=== PATIENT | female | born 1940 | race Caucasian/White ===

== ENCOUNTER → 2016-06-24 | Outpatient (CLI) | payer MEDICARE ==
--- NOTE | 2016-06-24 17:02 | US ---
EXAMINATION TYPE: US carotid duplex BILAT DATE OF EXAM: 06/24/2016 4:22 PM COMPARISON: NONE CLINICAL HISTORY: R09.89 Carotid Bruit. Pt states Physician heard a bruit EXAM MEASUREMENTS: RIGHT: Peak Systolic Velocity (PSV) cm/sec ----- Right CCA: 72.1 ----- Right ICA: 112.2 ----- Right ECA: 130.3 ICA/CCA ratio: 1.6 RIGHT: End Diastole cm/sec ----- Right CCA: 21.5 ----- Right ICA: 43.5 ----- Right ECA: 18.8 LEFT: Peak Systolic Velocity (PSV) cm/sec ----- Left CCA: 80.8 ----- Left ICA: 193.0 ----- Left ECA: 120.6 ICA/CCA ratio: 2.4 LEFT: End Diastole cm/sec ----- Left CCA: 21.5 ----- Left ICA: 50.5 ----- Left ECA: 25.2 VERTEBRALS (direction of flow): Right Vertebral: Antegrade Left Vertebral: Antegrade TECHNOLOGIST IMPRESSION: Heterogeneous plaque bilaterally with elevated velocities Right ECA and LEF T Bulb and ICA Grayscale, color Doppler, spectral Doppler imaging performed of the carotid arteries. Atheromatous pl aque present at the carotid bulbs. Waveform analysis does not show significant stenosis within the pr oximal internal carotid artery at the right. Hemodynamic significant stenosis is present within the p roximal internal carotid artery on the left. IMPRESSION: Hemodynamic significant stenosis of the proximal internal carotid artery on the left cor responding to approximately 50-69% diameter reduction. No hemodynamic significant stenosis of the pro ximal internal carotid artery on the right by Doppler criteria, an indirect measurement of carotid st enosis
== END | disposition home or self-care (01) ==
LOC: RADUSWWP 16:00
PROVIDERS: ATTEND Family Medicine
DX: I65.22 Occlusion and stenosis of left carotid artery (principal)
CPT/HCPCS: 93880

== ENCOUNTER → 2016-07-18 | Outpatient (CLI) | payer MEDICARE ==
[2016-07-18 12:00] LABS: EKG EKG PERFORMED
[2016-07-18 12:40] LABS: Basophils # (A) 0.1 k/uL (0-0.2); Basophils % (A) 1 %; CH 30.2; CHCM 31.4; Eosinophils % (A) 0 %; HCT 39.4 % (34.0-46.0); HDW 2.55; HGB 12.3 gm/dL (11.4-16.0); Luc # (Auto) 0.27; Luc % (Auto) 4; Lymphocytes # (A) 1.8 k/uL (1.0-4.8); Lymphocytes % (A) 28 %; MCH 30.1 pg (25.0-35.0); MCHC 31.1 g/dL (31.0-37.0); MCV 96.7 fL (80.0-100.0); Mean Platelet Volume 8.1; Monocytes # (A) 0.3 k/uL (0-1.0); Monocytes % (A) 5 %; Neutrophils # (A) 4.1 k/uL (1.3-7.7); Neutrophils % (A) 63 %; RBC 4.07 m/uL (3.80-5.40); RDW 14.1 % (11.5-15.5); WBC 6.5 k/uL (3.8-10.6); WBC (Perox) 6.74
[2016-07-18 12:41] LABS: Appearance,Urine Clear (Clear); Bilirubin,Urine Negative (Negative); Glucose,Urine (UA) Negative (Negative); Ketones,Urine Negative (Negative); Leukocyte Esterase,Urine Negative (Negative); Nitrite,Urine Negative (Negative); PH, Urine 6.5 (5.0-8.0); Protein,Urine Negative (Negative); Specific Gravity,Urine 1.011 (1.001-1.035); UA Billing (MACRO vs. MICRO) CHEM; Urobilinogen,Urine <2.0 mg/dL (<2.0)
[2016-07-18 12:48] LABS: Partial Thromboplastin Time 26.2 sec (22.0-30.0)
[2016-07-18 12:56] LABS: ALT 24 U/L (9-52); AST 21 U/L (14-36); Alkaline Phosphatase 80 U/L (38-126); Anion Gap 12 mmol/L; Blood Urea Nitrogen 28 mg/dL (7-17); Carbon Dioxide 24 mmol/L (22-30); Chloride 106 mmol/L (98-107); Glucose 103 mg/dL (74-99); Non-African American GFR(MDRD) 36 (>60 ml/min/1.73 sqM); Potassium 5.3 mmol/L (3.5-5.1); Sodium 142 mmol/L (137-145); Total Bilirubin 0.9 mg/dL (0.2-1.3); Total Protein 7.9 g/dL (6.3-8.2)
== END ==
LOC: LABWHC1 11:21
PROVIDERS: ATTEND Orthopaedic Surgery
DX: Z01.810 Encounter for preprocedural cardiovascular examination (principal); Z01.812 Encounter for preprocedural laboratory examination
CPT/HCPCS: 36415; 80053; 81003; 85025; 85610; 85730; 87070; 93005

== ENCOUNTER 2016-07-29 08:30 | Inpatient (IN) | payer MEDICARE ==
[2016-07-19 11:19] VITALS: BMI 36.7
[~2016-07-29 08:30] MED LIST: DEXAMETHASONE SOD PHOSPHATE 10 MG/ML 1 ML VIAL IV ONE; HYDROmorphone 1 MG/ML 1 ML SYRINGE IVP PRN; LACTATED RINGERS 1,000 ML IV SCH; MELOXICAM 7.5 MG TAB PO ONE; MIDAZOLAM 2 MG/2 ML VIAL IV PRN; ONDANSETRON 4 MG/2 ML VIAL IVP ONE; TRANEXAMIC ACID 1,000 MG in SODIUM CHLORIDE 0.9% 100 ML IVPB ONE; ceFAZolin 2 GM in SODIUM CHLORIDE 0.9% 100 ML IVPB ONE
[2016-07-29] MEDS ORDERED: ROPIVACAINE 246.25 MG, EPINEPHrine 0.5 MG, KETOROLAC 30 MG, cloNIDine HCL/PF 80 MCG, WA... MISCELLANE ONE ×5 (10:56)
[2016-07-29] MEDS ORDERED: LIDOCAINE 1% 20 ML VIAL (10MG/ML) FOR IV START INTRADERMA ONE (12:41)
[2016-07-29 12:46] LABS: Glucose,Whole Blood 104 mg/dL (75-99)
[2016-07-29] MEDS ORDERED: MIDAZOLAM 2 MG/2 ML VIAL IVP ONE (13:10)
--- NOTE | 2016-07-29 13:22 | P.ONQ ---
Anesthesiology Proc Note - PNB - Peripheral Nerve Block Performed Left Adductor Canal Time Out Performed: Yes Procedure Start Time: 12:50 Indication: Acute Post-Operative Pain, Analgesia Sedation Type: Sedate with meaningful contact maintained Preparation: Sterile Prep Position: Supine Catheter: Indwelling Needle Types: On-Q Needle Size: 50mm (2") Needle Gauge: 18 Injectate: 0.5% Ropivacaine (see comment for volume) Blood Aspirated: No Pain Paresthesia on Injection Noted: No Resistance on Injection: Normal Events: Uneventful and Well Tolerated
[2016-07-29] MEDS ORDERED: MIDAZOLAM 2 MG/2 ML VIAL ONE (13:45)
[2016-07-29] MEDS ORDERED: ePHEDrine 50 MG/ML 1 ML AMP ONE (13:45)
[2016-07-29] MEDS ORDERED: PROPOFOL 10 MG/ML 20 ML VIAL IV ONE (13:45)
[2016-07-29] MEDS ORDERED: SODIUM CHLORIDE 0.9% 100 ML BAG ONE (13:45)
[2016-07-29] MEDS ORDERED: fentaNYL (PF) 50 MCG/ML 2 ML AMP ONE (13:45)
[2016-07-29] MEDS ORDERED: TRANEXAMIC ACID 1,000 MG/10 ML VIAL ONE (13:45)
[2016-07-29] MEDS ORDERED: ROPIVACAINE 5 MG/ML 30 ML VIAL ONE (13:45)
[2016-07-29] MEDS ORDERED: PHENYLEPHRINE-0.9% NACL SYG 1 MG/10 ML SYRINGE ONE (13:45)
[2016-07-29] MEDS ORDERED: ONDANSETRON 4 MG/2 ML VIAL ONE (13:45)
[2016-07-29] MEDS ORDERED: ceFAZolin 3,000 MG in SODIUM CHLORIDE 0.9% IRRIGATIO 3,000 ML IRRIGATION ONE (14:24)
[2016-07-29] MEDS ORDERED: LACTATED RINGERS 1,000 ML IV ONE (14:38)
--- NOTE | 2016-07-29 15:18 | P.OP ---
Date of Procedure: 07/29/16 Preoperative Diagnosis: Severe osteoarthritis of the left knee Postoperative Diagnosis: Severe osteoarthritis left knee Procedure(s) Performed: Left total knee arthroplasty Implants: Guerrero [employer] Nephew Oxinium femoral component size 5 narrow, left Guerrero [employer] Nephew Katiana II left nonporous tibial baseplate size 4 Guerrero [employer] Nephew size 9 mm Legion XLPE dished articular insert, size 3-4 Guerrero [employer] Katiana II resurfacing patellar component, 32 mm All components were cemented using Malinda bone cement.. The articulation is ceramic on polyethylene. Anesthesia: spinal Surgeon: Shoaib Painter Manager Wellness #1: Jason West Estimated Blood Loss (ml): 50 Pathology: other (Bone and cartilage) Condition: stable Disposition: PACU Indications for Procedure: After failure of conservative treatment we discussed the surgical and nonsurgical treatment options at length. Patient wishes to proceed with a total knee arthroplasty. Complications specific to this procedure were discussed at length, including but not limited to infection, bleeding, stiffness , and nerve injury. Patient is aware of all these complications and informed consent was obtained Operative Findings: The operative findings are consistent with severe osteoarthritis of the left knee Description of Procedure: Patient was seen in the preoperative area consent was reviewed and operative site was marked with a skin marker. An adductor canal pain catheter was placed by anesthesia in the preoperative area. Patient was then brought to the operating room and given preoperative antibiotics intravenously. A spinal anesthetic was administered by the anesthesia department. A Andre catheter was then placed by the nursing staff. A tourniquet was placed on the upper thigh and the lower extremity was prepped and draped in usual sterile fashion. A gram of transexamic acid was given. A universal timeout was then performed which confirmed the patient's name, surgical site, ALLERGIES, and consent. The lower extremity was then exsanguinated and tourniquet was inflated to 250 mmHg. A standard and anterior midline approach to the knee was performed. The skin and subcutaneous tissue was dissected down to the patellar tendon. A medial parapatellar arthrotomy was then performed. The knee was then extended, the patellar was everted, and the knee was again flexed. Anterior horns of both menisci were excised, and a release was performed to the posterior medial aspect of the knee. On gross visual inspection, there was complete loss of articular cartilage in the medial and patellofemoral joint spaces. There was also significant cartilage damage in the lateral compartment. There were multiple periarticular osteophytes which were then removed with a Ronguer. The femoral canal was then opened with the appropriate drill, and the intramedullary femoral cutting guide was then placed and set for 4 of valgus. The distal femoral cutting block was then pinned in place, and the distal femur was then cut. The cutting block was then removed and the cut was checked for flatness. Next, the sizing guide was then placed and set for 3 external rotation based off of the epicondylar axis and Whitesides line. After the femur was sized, the appropriate 4-in-1 cutting block was then pinned in place. The anterior condyles were cut without notching. The posterior and chamfer cuts were performed while protecting the collateral ligaments. The cutting block was then removed, and the femoral canal was plugged with autologous bone. Attention was then directed to the tibia. The remaining ACL was removed with a Ronguer, and the tibia was then gently subluxed forward with a large bent knee retractor. Any remaining menisci was excised. The posterior lateral corner was cauterized in order to cauterize the lateral geniculate artery. The extra medullary tibial cutting guide was then placed, set for the appropriate rotation , slope, and depth of resection. The proximal tibia cutting guide was then pinned in place. Proximal tibia was then cut and sized. Next trials were then placed with the appropriate-sized insert. The knee was able to fully extend and flex to 130 and was stable throughout all range of motion. The knee was then extended, patella everted. Patella was then measured, and then using an osteotomy guide, the patella was cut at the appropriate level. The patella was then measured and drilled and the patella trial was then placed. The knee was then taken through range of motion with the patella trial and the patella tracked normally. The knee was then extended patella trial was then removed and the patella was everted. Knee was then flexed and lug holes were drilled through the femoral trial and the femoral trial was then removed. The tibial was then exposed, and the tibial broach guide was then pinned in place after it was set for the appropriate rotation to allow for the most coverage without overhang. The tibia was then reamed and broached. The cut surfaces of bone were then irrigated with pulsatile lavage. The posterior structures were injected with the ropivacaine solution. The knee was also irrigated with Irrisept solution. The components were then opened, the cement was mixed, and the components were then cemented in place. The cement was allowed to harden with the knee in full extension. While the cement was hardening, the remaining soft tissues were then injected with a ropivacaine solution, which consisted of 246.25 mg of ropivacaine, 0.5 mg of epinephrine, 30 mg of Toradol, 80 g of clonidine, and 48.45 mL of sterile water, for a total of 100 mL of fluid injected. After the cemented hardened. The tourniquet was released, and hemostasis was obtained. A second gram of transexamic acid was given. The knee was again irrigated. The knee was again taken through range of motion and found to be stable throughout all range of motion of 0-130 , and the patella tracked normally. The fascia was then closed with #2 strata fix suture. The subcutaneous tissue was closed with 3-0 Vicryl and 3-0 strata fix. Dermabond tape was used for the skin and placed with the knee in flexion. The patient was placed in a sterile dressing. Patient was then transferred to recovery room in stable condition. The legal assistant BENNIE Duke was required due the complexity surgery and the need for a skilled surgical services asst. She assisted in positioning, draping, retraction, and closure of the wound.
[2016-07-29] MEDS ORDERED: ROPIVACAINE 1,100 MG, SODIUM CHLORIDE 0.9% 330 ML MISCELLANE PRN ×2 (15:30)
[2016-07-29] MEDS ORDERED: HYDROmorphone 1 MG/ML 1 ML SYRINGE IVP PRN ×3 (15:59)
[2016-07-29] MEDS ORDERED: ONDANSETRON 4 MG/2 ML VIAL IVP PRN (15:59)
[2016-07-29] MEDS ORDERED: BISACODYL 10 MG SUPP RECTAL PRN (15:59)
[2016-07-29] MEDS ORDERED: MAGNESIUM HYDROXIDE 2,400 MG/10 ML CUP PO PRN (15:59)
[2016-07-29] MEDS ORDERED: hydrOXYzine PAMOATE 25 MG CAP PO PRN (15:59)
[2016-07-29] MEDS ORDERED: NALOXONE 0.4 MG/ML 1 ML VIAL IV PRN (15:59)
[2016-07-29] MEDS ORDERED: BUPIVACAIN-EPI 0.25%-1:200,000 30 ML VIAL INTRAARTIC ONE ×2 (16:28→17:20)
--- NOTE | 2016-07-29 16:30 | XR ---
EXAMINATION TYPE: XR knee limited LT DATE OF EXAM: 07/29/2016 4:23 PM CLINICAL HISTORY: Left knee pain and arthritis status post total knee replacement. TECHNIQUE: Portable AP and crosstable lateral views of the left knee are obtained immediately postop eratively. COMPARISON: None FINDINGS: Metallic hardware from total left knee arthroplasty is seen and appears satisfactory in al ignment and position. There is evidence of recent surgery with diffuse subcutaneous gas and swelling noted. IMPRESSION: METALLIC HARDWARE FROM TOTAL LEFT KNEE ARTHROPLASTY IS SATISFACTORY IN ALIGNMENT.
[2016-07-29] MEDS: SODIUM CHLORIDE 0.9% 1,000 ML IV SCH (17:56)
[2016-07-29 20:21] LABS: Glucose,Whole Blood 147 mg/dL (75-99)
[2016-07-29] MEDS: ceFAZolin 2 GM in SODIUM CHLORIDE 0.9% 100 ML IVPB SCH (21:49)
[2016-07-29] MEDS: BRIMONIDINE TARTRATE 0.2% DROPS 5 ML BTL BOTH EYES SCH (21:56)
[2016-07-29] MEDS: DORZOLAMIDE HCL 2% DROPS 10 ML BTL BOTH EYES SCH (21:56)
[2016-07-29] MEDS: SENNOSIDES-DOCUSATE SODIUM 1 EACH TAB PO SCH (22:00)
[2016-07-29] MEDS: ASPIRIN 325 MG TAB PO SCH (22:00)
[2016-07-29] MEDS: LATANOPROST 0.005% OPHTH DROPS 2.5 ML BTL BOTH EYES SCH (22:05)
[2016-07-29] MEDS: INSULIN LISPRO (humaLOG) 300 UNIT/3 ML VIAL SQ SCH (22:05)
[2016-07-30] MEDS: ceFAZolin 2 GM in SODIUM CHLORIDE 0.9% 100 ML IVPB SCH (01:36)
[2016-07-30 06:53] LABS: Glucose,Whole Blood 118 mg/dL (75-99)
[2016-07-30 08:02] LABS: Basophils % (A) 0 %; CH 29.9; CHCM 31.8; Eosinophils % (A) 0 %; HCT 31.8 % (34.0-46.0); HGB 10.3 gm/dL (11.4-16.0); Luc # (Auto) 0.09; Luc % (Auto) 1; Lymphocytes # (A) 1.2 k/uL (1.0-4.8); Lymphocytes % (A) 17 %; MCH 30.6 pg (25.0-35.0); MCHC 32.3 g/dL (31.0-37.0); MCV 94.7 fL (80.0-100.0); Mean Platelet Volume 7.3; Monocytes # (A) 0.4 k/uL (0-1.0); Monocytes % (A) 6 %; Neutrophils # (A) 5.2 k/uL (1.3-7.7); Neutrophils % (A) 76 %; RBC 3.35 m/uL (3.80-5.40); WBC 6.8 k/uL (3.8-10.6); WBC (Perox) 7.48
[2016-07-30] MEDS: INSULIN LISPRO (humaLOG) 300 UNIT/3 ML VIAL SQ SCH ×4 (08:06→22:09)
[2016-07-30] MEDS: BRIMONIDINE TARTRATE 0.2% DROPS 5 ML BTL BOTH EYES SCH ×2 (08:09→22:08)
[2016-07-30] MEDS: ASPIRIN 325 MG TAB PO SCH (08:09)
[2016-07-30] MEDS: DORZOLAMIDE HCL 2% DROPS 10 ML BTL BOTH EYES SCH ×2 (08:09→22:08)
[2016-07-30] MEDS: MELOXICAM 7.5 MG TAB PO SCH (08:10)
--- NOTE | 2016-07-30 08:30 | P.PN ---
Progress Note - Text Postop day 1 status post left total knee arthroplasty, and abductor cannot catheter placed for postoperative analgesia, patient vital signs stable, visual analog scale 0/10 with rest, increased to 4/10 with knee movement , patient currently on ropivacaine infusion 8 mL per hour. Assessment and plan= postoperative day 1 , patient doing well, good postoperative analgesia, we'll continue the current management
--- NOTE | 2016-07-30 08:40 | P.PN ---
Progress Note - Text Patient is a very pleasant 75-year-old female who is seen and examined at bedside for further evaluation after undergoing a left total knee arthroplasty performed yesterday, 07/29/2016, by Dr. Shoaib Painter. Patient states postsurgically her pain is been well-controlled. She has not been out of bed yet this morning. She states she's not much of a breakfast eater but was able to eat a little bit this morning. The Isrrael wrap which was placed in the operating room has since been removed. Patient is lying comfortably in bed without any significant pain in the left knee. Her Andre catheter currently remains intact. She states this will plan to be discontinued today. We discussed again that upon discharge she'll plan to be discharged home with home health care. We discussed I will also discuss her with case management to begin that process. Patient states this morning she feels quite well postsurgically and is looking forward to increasing ambulation. Physical Exam Total Knee Arthroplasty: Status post surgical day number 1 Patient is awake, alert, and oriented 3 Vital signs stable Good chest excursion with deep inspiration and expiration Abdomen soft nontender No signs or symptoms of DVT; no calf pain; calves are soft Dressing is clean, dry, and intact; no erythema, purulence, or signs of infection over the left knee Patient has full foot and ankle motion without difficulty bilateral lower extremities Dorsiflexion, plantar flexion, and extensor hallucis longus positive sustained bilaterally Neurovascular status left lower extremity intact Capillary refill lower extremity is bilaterally less than 2 seconds Andre catheter intact Assessment: Status post left total knee arthroplasty for osteoarthritis Plan: 1. Patient to remain weight-bear as tolerated on the left lower extremity; patient may work with physical therapy to increase mobility and ambulation 2. Continue pain control 3. Medicine to continue following the patient for her other medical diagnoses 4. Patient to continue with anticoagulation therapy with aspirin 325 mg twice a day 5. We'll continue to follow the patient; will plan to discontinue the Andre catheter when she is able to increase ambulation 6. At the time of discharge, we'll plan to discharge the patient home with home healthcare 7. Patient can follow-up with Dr. Shoaib Painter at [facility] in 2-3 weeks following discharge
[2016-07-30] MEDS: traMADol 50 MG TAB PO PRN ×2 (08:54→16:07)
[2016-07-30 11:34] LABS: Glucose,Whole Blood 149 mg/dL (75-99)
[2016-07-30 12:15] LABS: Hemoglobin A1C 5.8 % (4.2-6.1)
[2016-07-30] MEDS: SODIUM CHLORIDE 0.9% 1,000 ML IV SCH (12:18)
[2016-07-30] MEDS: DIAZEPAM 5 MG TAB PO PRN (12:19)
[2016-07-30 13:49] LABS: Calcium 8.9 mg/dL (8.4-10.2); Potassium 4.6 mmol/L (3.5-5.1)
[2016-07-30 16:27] LABS: Glucose,Whole Blood 134 mg/dL (75-99)
--- NOTE | 2016-07-30 17:06 | CONS ---
DATE OF CONSULTATION: REASON FOR CONSULTATION: Management of hypertension, perioperative hypertension and postoperative complications. Patient is a 75-year-old female admitted for left knee arthroplasty. Patient is clinically doing well. Patient denied any fever, chills. Patient denied any nausea, vomiting. Patient is hypertensive. Does not use any medication for diabetes mellitus. Hemoglobin A1c is 5.8, not requiring any insulin at this point of time. REVIEW OF SYSTEMS: CONSTITUTIONAL: No fever, no malaise, no fatigue. HEENT: No recent visual problems or hearing problems. Denied any sore throat. CARDIOVASCULAR: No chest pain, orthopnea, PND, no palpitations, no syncope. PULMONARY: No shortness of breath, no cough, no hemoptysis. GASTROINTESTINAL: No diarrhea, no nausea, no vomiting, no abdominal pain. Normoactive bowel sounds. NEUROLOGICAL: No headaches, no weakness, no numbness. HEMATOLOGICAL: Denies any bleeding or petechiae. GENITOURINARY: Denies any burning micturition, frequency, or urgency. MUSCULOSKELETAL/RHEUMATOLOGICAL: Denies any joint pain, swelling, or any muscle pain. ENDOCRINE: Denies any polyuria or polydipsia. The rest of the 14 point review of systems is negative. PAST MEDICAL HISTORY: Cancer, history of diabetes mellitus as per the history, although patient's hemoglobin is A1c is 5.3 without any medications for diabetes mellitus. Patient may be diet controlled. Hyperlipidemia, gastroesophageal reflux disease, hypertension, osteoarthritis, uterine cancer in the past, bladder suspension surgery, hernia repair, hysterectomy, joint replacement surgery, cholecystectomy, multiple other orthopedic surgeries. SOCIAL HISTORY: Denied any smoking, alcohol abuse or drug abuse. FAMILY HISTORY: Significant for cancer. PHYSICAL EXAMINATION: Temperature 98.2, pulse is 70, respiratory rate 16, blood pressure 123/62, saturating at 94% on room air. GENERAL: The patient is alert and oriented x3, not in any acute distress. Well developed, well nourished. HEENT: Pupils are round and equally reacting to light. EOMI. No scleral icterus. No conjunctival pallor. Normocephalic, atraumatic. No pharyngeal erythema. No thyromegaly. CARDIOVASCULAR: S1 and S2 present. No murmurs, rubs, or gallops. PULMONARY: Chest is clear to auscultation, no wheezing or crackles. ABDOMEN: Soft, nontender, nondistended, normoactive bowel sounds. No palpable organomegaly. MUSCULOSKELETAL: Defer to Orthopedic Surgery. EXTREMITIES: No cyanosis, clubbing, or pedal edema. NEUROLOGICAL: Gross neurological examination did not reveal any focal deficits. SKIN: No rashes. CBC was reviewed. Mildly low hemoglobin of 8.3. ASSESSMENT AND PLAN: 1. Right knee arthroplasty with mild acute blood loss anemia, probably from surgery. 2. Hypertension. Hold off antihypertensives to prevent any perioperative hypotension and perioperative hypotension-related stroke. 3. Gastroesophageal reflux disease. 4. Hyperlipidemia. For above mentioned chronic medical problems, I will go ahead and continue her home medications except for antihypertensives, which will be held except for beta delroy. Patient is not on beta delroy. Thank you for letting me participate in the patient's care. Will continue to follow the patient on as-needed basis. Patient's primary care physician is Dr. Soiltario Duke.
[2016-07-30] MEDS ORDERED: FAMOTIDINE 20 MG TAB PO SCH (17:30)
[2016-07-30] MEDS ORDERED: CHOLECALCIFEROL 1,000 UNIT TAB PO SCH (18:30)
[2016-07-30 20:23] LABS: Glucose,Whole Blood 125 mg/dL (75-99)
[2016-07-30] MEDS ORDERED: NON-FORMULARY DRUG (Brinzolamide/Brimonidine Tart [Simbrinza 1%-0.2% Eye Drops] 1 DROP) BOTH EYES SCH (21:00)
[2016-07-30] MEDS ORDERED: ATORVASTATIN 10 MG TAB PO SCH (21:00)
[2016-07-30] MEDS: SENNOSIDES-DOCUSATE SODIUM 1 EACH TAB PO SCH (22:10)
[2016-07-30] MEDS: LATANOPROST 0.005% OPHTH DROPS 2.5 ML BTL BOTH EYES SCH (22:13)
[2016-07-30 23:38] VITALS: TEMP 99.1
[2016-07-31 02:30] VITALS: BP 138/63; PULSE 83; RESP 16
[2016-07-31 07:00] LABS: Glucose,Whole Blood 107 mg/dL (75-99)
[2016-07-31] MEDS: INSULIN LISPRO (humaLOG) 300 UNIT/3 ML VIAL SQ SCH (07:54)
[2016-07-31] MEDS: MELOXICAM 7.5 MG TAB PO SCH (07:56)
[2016-07-31] MEDS: DORZOLAMIDE HCL 2% DROPS 10 ML BTL BOTH EYES SCH (07:57)
[2016-07-31] MEDS: BRIMONIDINE TARTRATE 0.2% DROPS 5 ML BTL BOTH EYES SCH (07:57)
[2016-07-31] MEDS: DIAZEPAM 5 MG TAB PO PRN (08:00)
--- NOTE | 2016-07-31 08:26 | P.DS ---
Providers Date of admission: 07/29/16 11:59 Expected date of discharge: 07/31/16 Attending physician: Shoaib Painter Consults: 07/29/16 15:59 Consult Physician Routine Consulting Provider: Quinton Barnes Consult Reason/Comments: Medical management Do you want consulting provider notified?: Yes Primary care physician: Solitario Duke - Discharge Diagnosis(es) (1) Status post left knee replacement Current Visit: Yes Status: Acute (2) Osteoarthritis of left knee Current Visit: Yes Status: Acute Hospital Course: This is a pleasant 75-year-old female who presented with left knee osteoarthritis who failed outpatient conservative therapy. She admitted for a left total knee arthroplasty which was performed by Dr. Shoaib Painter. The patient tolerated the procedure well and did well postoperatively. She has some stiffness of the left knee, which is expected. She states her left knee pain has being controlled. She has been able to ambulate. Prescription has been written for a CPM machine. Condition on day of discharge stable. Patient will be discharged home with home healthcare. Patient was cleared preoperatively for surgery by Dr. Duke. Patient currently denies any nausea, vomiting, fever, or chills. Patient is eating and voiding freely without difficulty. Dressing will be changed prior to discharge. Patient may remove dressing in 3 days and may shower without a dressing at that time. Leave Dermabond intact. Instructions will be given in the office at the follow-up appointment on how to remove the Dermabond. Patient should refrain from driving until at least after their first follow-up appointment in the office. Patient will be further evaluated at that time. Continue weightbearing as tolerated on left lower extremity. Continue using CPM machine as instructed. Patient to elevate and apply ice to the left knee for comfort support as needed. Prescription will be given for aspirin 325 mg 2 tabs daily for 4 weeks and Ultram 50 mg 1 tab every 6 hours as needed for pain. Physical Exam on day of discharge: Status post surgical day number 2 Patient is awake, alert, and oriented 3 Vital signs stable Good chest excursion with deep inspiration and expiration Abdomen soft nontender No signs or symptoms of DVT; no calf pain; calves are soft Dressing is clean, dry, and intact; no erythema, purulence, or signs of infection over the left knee Incision over the left knee shows no active drainage or obvious sign of infection; Dermabond remains intact; no sign of dehiscence Evidence of some generalized swelling of the left knee Patient has full foot and ankle motion without difficulty bilateral lower extremities Dorsiflexion, plantar flexion, and extensor hallucis longus positive sustained bilaterally Neurovascular status left lower extremity intact Capillary refill lower extremity is bilaterally less than 2 seconds Procedures: Left total knee arthroplasty Patient Condition at Discharge: Stable Plan - Discharge Summary New Discharge Prescriptions: Aspirin 325 mg PO BID #28 tab traMADol HCl [Ultram] 50 mg PO Q6H PRN #90 tab PRN Reason: Pain Discharge Medication List Acetaminophen Tab [Tylenol Tab] 500 mg PO Q6H PRN 07/19/16 [History] Aspirin [Adult Low Dose Aspirin EC] 81 mg PO DAILY 07/19/16 [History] Atorvastatin [Lipitor] 10 mg PO HS 07/19/16 [History] Brinzolamide/Brimonidine Tart [Simbrinza 1%-0.2% Eye Drops] 1 drop BOTH EYES BID 07/19/16 [History] Cholecalciferol [Vitamin D3] 5,000 unit PO PC-SUPPER 07/19/16 [History] Famotidine 40 mg PO AC-SUPPER 07/19/16 [History] Latanoprost Ophth [Xalatan 0.005%] 1 drops BOTH EYES HS 07/19/16 [History] Lisinopril-Hctz 20-25 mg [Zestoretic 20-25] 1 tab PO DAILY 07/19/16 [History] amLODIPine BESYLATE [Norvasc] 2.5 mg PO DAILY 07/19/16 [History] Aspirin 325 mg PO BID #28 tab 07/31/16 [Rx] traMADol HCl [Ultram] 50 mg PO Q6H PRN #90 tab 07/31/16 [Rx] Follow up Appointment(s)/Referral(s): [facility], [NON-STAFF] - 1 Week Shoaib Painter DO [Doctor of Osteopathic Medicine] - 2 Weeks (Patient may follow-up with Dr. Shoaib Painter at [facility] in 2-3 weeks following discharge. ) Activity/Diet/Wound Care/Special Instructions: [facility] so they can deliver the CPM -[phone] 1. Keep Dermabond over the left knee clean, dry, and intact; patient may shower in 3 days without a dressing at that time 2. Keep Dermabond intact; instructions will be given at follow-up appointment in the office on how to remove the Dermabond 3. Weight-bear as tolerated left lower extremity 4. Patient may elevate left knee and apply ice for comfort support as needed 5. Avoid excessive activity in regards to left lower extremity 6. Patient should avoid driving until further evaluation in the office 7. Use CPM as instructed Discharge Disposition: HOME WITH HOME HEALTH SERVICES
[2016-07-31] MEDS ORDERED: ASPIRIN 81 MG CHEW PO SCH (09:00)
[2016-07-31 11:49] LABS: Glucose,Whole Blood 120 mg/dL (75-99)
== END 2016-07-31 14:16 | disposition home health service (06) | DRG 470 ==
LOC: 2ORMAIN 11:59 → 3SUR 16:05
PROVIDERS: ADMIT Orthopaedic Surgery; ATTEND Orthopaedic Surgery
PROC: 0SRD0J9 Replacement of Left Knee Joint with Synthetic Substitute, Cemented, Open Approach (ICD-10-PCS; principal; 2016-07-29 13:30)
DX: M17.12 Unilateral primary osteoarthritis, left knee (principal); D62 Acute posthemorrhagic anemia; E11.9 Type 2 diabetes mellitus without complications; I65.29 Occlusion and stenosis of unspecified carotid artery; H40.9 Unspecified glaucoma; M25.762 Osteophyte, left knee; I10 Essential (primary) hypertension; K21.9 Gastro-esophageal reflux disease without esophagitis; E78.5 Hyperlipidemia, unspecified; Z85.42 Personal history of malignant neoplasm of other parts of uterus; Z79.82 Long term (current) use of aspirin; Z79.899 Other long term (current) drug therapy; Z88.1 Allergy status to other antibiotic agents; Z88.5 Allergy status to narcotic agent; Z88.8 Allergy status to other drugs, medicaments and biological substances; Z83.3 Family history of diabetes mellitus; Z87.448 Personal history of other diseases of urinary system; Z82.49 Family history of ischemic heart disease and other diseases of the circulatory system; Z96.651 Presence of right artificial knee joint; Z90.49 Acquired absence of other specified parts of digestive tract; Z80.9 Family history of malignant neoplasm, unspecified
CPT/HCPCS: 80048; 83036; 84132; 85025; 88300

== ENCOUNTER → 2017-06-24 | Outpatient (CLI) | payer MEDICARE ==
--- NOTE | 2017-06-24 15:24 | US ---
EXAMINATION TYPE: US carotid duplex BILAT DATE OF EXAM: 06/24/2017 COMPARISON: US CLINICAL HISTORY: Carotid Occlusion and Stenosis I65.23. F/U, pt has no complaints at this time EXAM MEASUREMENTS: RIGHT: Peak Systolic Velocity (PSV) cm/sec ----- Right CCA: 79.0 ----- Right ICA: 101.8 ----- Right ECA: 189.6 ICA/CCA ratio: 1.3 RIGHT: End Diastole cm/sec ----- Right CCA: 19.7 ----- Right ICA: 31.4 ----- Right ECA: 20.0 LEFT: Peak Systolic Velocity (PSV) cm/sec ----- Left CCA: 90.8 ----- Left ICA: 196.6 ----- Left ECA: 152.9 ICA/CCA ratio: 2.2 LEFT: End Diastole cm/sec ----- Left CCA: 21.5 ----- Left ICA: 50.2 ----- Left ECA: 20.9 VERTEBRALS (direction of flow): Right Vertebral: Antegrade Left Vertebral: Antegrade Rhythm: Normal Heterogeneous plaque bilaterally with elevated velocities bilateral ECA's and left ICA as seen on pre vious IMPRESSION: 1. Stenosis of 50-69% the left internal carotid artery as seen on the prior exam of 06/24/2016. CT nec k could be performed for further evaluation. 2. No hemodynamically significant stenosis within the right internal carotid artery or common carotid artery with elevated velocity in the external carotid artery indicative of 50-69% stenosis.
== END | disposition home or self-care (01) ==
LOC: RADUSWWP 14:42
PROVIDERS: ATTEND Family Medicine
DX: I65.22 Occlusion and stenosis of left carotid artery (principal)
CPT/HCPCS: 93880

== ENCOUNTER → 2017-12-15 | Outpatient (CLI) | payer MEDICARE ==
--- NOTE | 2017-12-15 09:40 | US ---
EXAMINATION TYPE: US carotid duplex BILAT DATE OF EXAM: 12/15/2017 COMPARISON: Carotid ultrasound June 24, 2017 CLINICAL HISTORY: I65.29 Occlusion and stenosis of unspecified baron. HTN but pt states taking meds t his morning. Hx of elevated velocities. EXAM MEASUREMENTS: RIGHT: Peak Systolic Velocity (PSV) cm/sec ----- Right CCA: 78.7 ----- Right ICA: 88.6 ----- Right ECA: 133.4 ICA/CCA ratio: 1.1 RIGHT: End Diastole cm/sec ----- Right CCA: 14.9 ----- Right ICA: 30.3 ----- Right ECA: 12.3 LEFT: Peak Systolic Velocity (PSV) cm/sec ----- Left CCA: 67.7 ----- Left ICA: 164.7 ----- Left ECA: 123.7 ICA/CCA ratio: 2.4 LEFT: End Diastole cm/sec ----- Left CCA: 16.2 ----- Left ICA: 46.5 ----- Left ECA: 20.4 VERTEBRALS (direction of flow): Right Vertebral: Antegrade Left Vertebral: Antegrade Rhythm: Normal Bilateral wall thickening. Plaque seen in bilateral bulbs with plaque extending into left ICA. [place] neyda velocities seen in right ECA, Prox left ICA, Mid left ICA and left bulb. Upper limits of normal s een in left ECA. Left significant stenosis. Moderate eccentric plaque right carotid bulb is redemonstrated on grayscale images. Velocity measurem ents and ratios in right internal carotid artery remain within normal limits. More severe plaque at l eft carotid bulb is redemonstrated with increased peak systolic and end-diastolic velocity and abnorm al ratio remaining present. IMPRESSION: Moderate to severe atherosclerotic change bilaterally, left greater than right with sten osis of 50-69% felt remaining present in the left internal carotid artery. Consider CTA or MRA of t he neck to further evaluate and characterize. Criteria for Assigning % of Stenosis / Diameter reduction (Estimation based on the indirect measurements of the internal carotid artery velocities (ICA PSV). 1. Normal (no stenosis)=ICA PSV < 125 cm/s: ratio < 2.0: ICA EDV<40 cm/s. 2. Less than 50% stenosis=ICA PSV < 125 cm/s: ratio < 2.0: ICA EDV<40 cm/s. 3. 50 to 69% stenosis=ICA PSV of 125 to 230 cm/s: ration 2.0 ? 4.0: ICA EDV 40-100 cm/s. 4. Greater than 70% stenosis to near occlusion= ICA PSV > 230 cm/s: ratio > 4.0: ICA EDV > 100 cm/s. 5. Near occlusion= ICA PSV velocities may be low or undetectable: variable ratio and ICA EDV. 6. Total occlusion=unable to detect flow.
== END | disposition home or self-care (01) ==
LOC: RADUSWWP 08:47
PROVIDERS: ATTEND Family Medicine
DX: I65.23 Occlusion and stenosis of bilateral carotid arteries (principal)
CPT/HCPCS: 93880

== ENCOUNTER → 2018-07-02 | Outpatient (CLI) | payer MEDICARE ==
--- NOTE | 2018-07-02 13:02 | US ---
EXAMINATION TYPE: US carotid duplex BILAT DATE OF EXAM: 07/02/2018 COMPARISON: NONE CLINICAL HISTORY: I65.29 OCCLUSION AND STENOSIS OF CAROTID ARTERY. EXAM MEASUREMENTS: RIGHT: Peak Systolic Velocity (PSV) cm/sec ----- Right CCA: 67.4 ----- Right ICA: 91.6 ----- Right ECA: 127.0 ICA/CCA ratio: 1.4 RIGHT: End Diastole cm/sec ----- Right CCA: 15.1 ----- Right ICA: 25.5 ----- Right ECA: 9.6 LEFT: Peak Systolic Velocity (PSV) cm/sec ----- Left CCA: 66.9 ----- Left ICA: 160.0 ----- Left ECA: 104.7 ICA/CCA ratio: 2.4 LEFT: End Diastole cm/sec ----- Left CCA: 16.5 ----- Left ICA: 47.1 ----- Left ECA: 11.7 VERTEBRALS (direction of flow): Right Vertebral: Antegrade Left Vertebral: Antegrade Rhythm: Normal Mild atherosclerotic plaque with slight velocity increases in left ICA. IMPRESSION: 1. Stenosis within the left internal carotid artery corresponding to 50-69% the degree of which could be more accurately assessed with CTA neck. 2. No hemodynamically significant stenosis within the right internal carotid artery or common carotid artery. Criteria for Assigning % of Stenosis / Diameter reduction (Estimation based on the indirect measurements of the internal carotid artery velocities (ICA PSV). 1. Normal (no stenosis)=ICA PSV < 125 cm/s: ratio < 2.0: ICA EDV<40 cm/s. 2. Less than 50% stenosis=ICA PSV < 125 cm/s: ratio < 2.0: ICA EDV<40 cm/s. 3. 50 to 69% stenosis=ICA PSV of 125 to 230 cm/s: ration 2.0 ? 4.0: ICA EDV 40-100 cm/s. 4. Greater than 70% stenosis to near occlusion= ICA PSV > 230 cm/s: ratio > 4.0: ICA EDV > 100 cm/s. 5. Near occlusion= ICA PSV velocities may be low or undetectable: variable ratio and ICA EDV. 6. Total occlusion=unable to detect flow.
== END | disposition home or self-care (01) ==
LOC: RADUSWWP 12:05
PROVIDERS: ATTEND Family Medicine
DX: I65.22 Occlusion and stenosis of left carotid artery (principal)
CPT/HCPCS: 93880

== ENCOUNTER → 2019-10-11 | Outpatient (CLI) | payer MEDICARE ==
--- NOTE | 2019-10-11 11:43 | US ---
EXAMINATION TYPE: US carotid duplex BILAT DATE OF EXAM: 10/11/2019 COMPARISON: US 2019 CLINICAL HISTORY: 79-year-old female I65.29 left carotid artery stenosis. Left carotid stenosis TECHNIQUE: Carotid duplex ultrasound examination. Indirect Doppler criteria was utilized. FINDINGS: EXAM MEASUREMENTS: RIGHT: Peak Systolic Velocity (PSV) cm/sec ----- Right CCA: 79.2 ----- Right ICA: 92.1 ----- Right ECA: 198.4 ICA/CCA ratio: 1.2 RIGHT: End Diastole cm/sec ----- Right CCA: 20.2 ----- Right ICA: 30.8 ----- Right ECA: 21.4 LEFT: Peak Systolic Velocity (PSV) cm/sec ----- Left CCA: 75.8 ----- Left ICA: 170.3 ----- Left ECA: 117.3 ICA/CCA ratio: 2.2 LEFT: End Diastole cm/sec ----- Left CCA: 17.6 ----- Left ICA: 43.9 ----- Left ECA: 12.3 VERTEBRALS (direction of flow): Right Vertebral: Antegrade Left Vertebral: Antegrade Rhythm: Normal Cut Off Saw Operator notes: Bilateral intimal thickening, plaque bilateral bulb, elevated velocities: right pr ox ECA and left prox ICA, left ICA/CCA ratio 2.2 Moderate atherosclerotic changes right bifurcation and moderate to severe on the left. IMPRESSION: Measurements again suggest a moderate (50-69%) stenosis of the proximal left ICA. Criteria for Assigning % of Stenosis / Diameter reduction (Estimation based on the indirect measurements of the internal carotid artery velocities (ICA PSV). 1. Normal (no stenosis)=ICA PSV < 125 cm/s: ratio < 2.0: ICA EDV<40 cm/s. 2. Less than 50% stenosis=ICA PSV < 125 cm/s: ratio < 2.0: ICA EDV<40 cm/s. 3. 50 to 69% stenosis=ICA PSV of 125 to 230 cm/s: ration 2.0 ? 4.0: ICA EDV 40-100 cm/s. 4. Greater than 70% stenosis to near occlusion= ICA PSV > 230 cm/s: ratio > 4.0: ICA EDV > 100 cm/s. 5. Near occlusion= ICA PSV velocities may be low or undetectable: variable ratio and ICA EDV. 6. Total occlusion=unable to detect flow.
== END | disposition home or self-care (01) ==
LOC: RADUSWWP 10:08
PROVIDERS: ATTEND Family Medicine
DX: I65.29 Occlusion and stenosis of unspecified carotid artery (principal)
CPT/HCPCS: 93880

== ENCOUNTER → 2021-08-15 | Outpatient (CLI) | payer MEDICARE ==
--- NOTE | 2021-08-16 07:20 | US ---
EXAMINATION TYPE: US carotid duplex BILAT DATE OF EXAM: 08/15/2021 COMPARISON: 10/11/2019 CLINICAL HISTORY: I65.22 OCCLUSION AND STENOSIS OF LEFT CAROTID ARTERY. Left carotid stenosis EXAM MEASUREMENTS: RIGHT: Peak Systolic Velocity (PSV) cm/sec ----- Right CCA: 88.3 ----- Right ICA: 118.0 ----- Right ECA: 266.0 ICA/CCA ratio: 1.34 RIGHT: End Diastole cm/sec ----- Right CCA: 13.0 ----- Right ICA: 31.8 ----- Right ECA: 18.1 LEFT: Peak Systolic Velocity (PSV) cm/sec ----- Left CCA: 101.0 ----- Left ICA: 224.0 ----- Left ECA: 198.0 ICA/CCA ratio: 2.22 LEFT: End Diastole cm/sec ----- Left CCA: 18.2 ----- Left ICA: 56.0 ----- Left ECA: 29.3 VERTEBRALS (direction of flow): Right Vertebral: Antegrade Left Vertebral: Antegrade Rhythm: Arrhythmia Moderate plaque formation and intimal thickening seen throughout the right carotid artery. Elevated v elocities noted within the right ECA. Moderate to severe plaque formation and intimal thickening seen throughout the left carotid artery. E levated velocities seen within the left ICA and ECA. Grayscale, color Doppler, spectral Doppler imaging performed of the carotid arteries. Waveform analys is does not show significant stenosis of the internal carotid artery on the right. Hemodynamic signif icant stenosis of the proximal internal carotid artery on the left is noted however. IMPRESSION: Hemodynamic significant stenosis of the proximal internal carotid artery on the left by Doppler criteria, an indirect measurement of carotid stenosis, findings correlate to approximately 50 -69% diameter reduction by Doppler criteria as on prior exam. Criteria for Assigning % of Stenosis / Diameter reduction (Estimation based on the indirect measurements of the internal carotid artery velocities (ICA PSV). 1. Normal (no stenosis)=ICA PSV < 125 cm/s: ratio < 2.0: ICA EDV<40 cm/s. 2. Less than 50% stenosis=ICA PSV < 125 cm/s: ratio < 2.0: ICA EDV<40 cm/s. 3. 50 to 69% stenosis=ICA PSV of 125 to 230 cm/s: ration 2.0 ? 4.0: ICA EDV 40-100 cm/s. 4. Greater than 70% stenosis to near occlusion= ICA PSV > 230 cm/s: ratio > 4.0: ICA EDV > 100 cm/s. 5. Near occlusion= ICA PSV velocities may be low or undetectable: variable ratio and ICA EDV. 6. Total occlusion=unable to detect flow.
== END | disposition home or self-care (01) ==
LOC: RADUSWWP 16:57
PROVIDERS: ATTEND Family Medicine
DX: I65.22 Occlusion and stenosis of left carotid artery (principal)
CPT/HCPCS: 93880

== ENCOUNTER → 2023-11-05 | Outpatient (CLI) | payer MEDICARE ==
[2023-11-05 16:16] LABS: T4, Free (Free Thyroxine) 1.23 ng/dL (0.80-1.80)
== END | disposition home or self-care (01) ==
LOC: LABWHC1 11:04
PROVIDERS: ATTEND Psychiatry & Neurology Neurology
DX: R41.3 Other amnesia (principal); Z79.899 Other long term (current) drug therapy
CPT/HCPCS: 36415; 82607; 82746; 84439; 84443

== ENCOUNTER → 2023-11-05 | Outpatient (CLI) | payer MEDICARE ==
--- NOTE | 2023-11-05 11:29 | CT ---
EXAMINATION TYPE: CT brain wo con CT DLP: 1079 mGycm, Automated exposure control for dose reduction was used. DATE OF EXAM: 11/05/2023 11:20 AM COMPARISON: None. CLINICAL INDICATION:Female, 83 years old with history of R41.3 OTHER AMNESIA, memory loss TECHNIQUE: Brain: Multiple axial CT images of the brain were obtained without IV contrast. . Coronal and sagitta l reformats reviewed. FINDINGS: Brain: Extra-axial spaces: No abnormal extra-axial fluid collections. 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 No surrounding edema. Ventricular system: Within normal limits Cerebral parenchyma: No acute intraparenchymal hemorrhage or mass effect. The mckeon-white junction is well differentiated. Cerebellum: Unremarkable. Mass effect: No evidence of midline shift. Intracranial vasculature: Atherosclerotic calcifications of the intracranial vessels. Soft tissues: Normal. Calvarium/osseous structures: No depressed skull fracture. Paranasal sinuses and mastoid air cells: Clear Visualized orbits: Orbital contents are intact. IMPRESSION: No acute intracranial process.
== END | disposition home or self-care (01) ==
LOC: RADCTMAIN 10:35
PROVIDERS: ATTEND Psychiatry & Neurology Neurology
DX: R41.3 Other amnesia (principal)
CPT/HCPCS: 70450

== ENCOUNTER 2024-01-19 12:16 | Observation (INO) | payer MEDICARE ==
--- NOTE | 2024-01-19 13:18 | ED ---
Altered Mental Status HPI - General Source: patient, RN notes reviewed Mode of arrival: wheelchair Limitations: no limitations <July Toriboi - Last Filed: 01/19/24 13:17> <Peter Davis - Last Filed: 01/19/24 19:04> - General Chief Complaint: Altered Mental Status Stated Complaint: Confusion Time Seen by Provider: 01/19/24 13:17 - History of Present Illness Initial Comments: Quick note: 83-year-old female presented to the ER with a chief complaint of confusion. Family is providing HPI in its entirety. They state she has a past medical history significant of dementia. Patient does live alone and has been having abnormal behavior. Family states she has packed up her entire kitchen stating that her mother packed it. Patient denies any current pain. Patient's family is looking for custodial placement. (July Toribio) Dictation was produced using [employer] dictation software. please excuse any grammatical, word or spelling errors. Chief Complaint: 83-year-old female presents to the emergency department for worsening dementia History of Present Illness: Patient is an 83-year-old female she is here with family member. Patient apparently lives at home with nephew. Nephew has had medical issues and unable to care for the patient. Patient unable to care for self. There is no family that we will be able to take care of her she is brought here for worsening dementia. Patient has no complaints. According to family member at the bedside patient was packing her bags making bizarre comments regarding a a family member who is been for 10 years. The ROS documented in this emergency department record has been reviewed and confirmed by me. Those systems with pertinent positive or negative responses have been documented in the HPI. All other systems are other negative and/or noncontributory. (Peter Davis) - Related Data Home Medications Medication Instructions Recorded Confirmed Atorvastatin [Lipitor] 10 mg PO DAILY 07/19/16 01/19/24 Donepezil [Aricept] 5 mg PO HS 01/19/24 01/19/24 Famotidine [Pepcid] 40 mg PO DAILY 01/19/24 01/19/24 Allergies Allergy/AdvReac Type Severity Reaction Status Date / Time acetaminophen [From Vicodin] AdvReac Severe Vomiting Verified 01/19/24 18:47 hydrocodone [From Vicodin] AdvReac Severe Vomiting Verified 01/19/24 18:47 amlodipine [From Norvasc] AdvReac Nausea & Verified 01/19/24 18:47 Vomiting atenolol AdvReac Nausea & Verified 01/19/24 18:47 Vomiting cefaclor [From Ceclor] AdvReac Nausea & Verified 01/19/24 18:47 Vomiting cephalexin AdvReac Nausea & Verified 01/19/24 18:47 Vomiting doxycycline AdvReac Nausea & Verified 01/19/24 18:47 Vomiting levofloxacin [From Levaquin] AdvReac Nausea & Verified 01/19/24 18:47 Vomiting loratadine AdvReac Nausea & Verified 01/19/24 18:47 [From Claritin-D 12 Hour] Vomiting pseudoephedrine AdvReac Nausea & Verified 01/19/24 18:47 [From Claritin-D 12 Hour] Vomiting terfenadine [From Seldane-D] AdvReac Nausea & Verified 01/19/24 18:47 Vomiting triamterene AdvReac Nausea & Verified 01/19/24 18:47 Vomiting Review of Systems ROS Other: All systems not noted in ROS Statement are negative. <July Toribio - Last Filed: 01/19/24 13:17> ROS Other: All systems not noted in ROS Statement are negative. <Peter Davis - Last Filed: 01/19/24 19:04> ROS Statement: Those systems with pertinent positive or pertinent negative responses have been documented in the HPI. Past Medical History Past Medical History: Cancer, Diabetes Mellitus, Eye Disorder, GERD/Reflux, Hyperlipidemia, Hypertension, Osteoarthritis (OA), Skin Disorder Additional Past Medical History / Comment(s): UTERINE CA. GLAUCOMA, LT WORSE. CAROTID ARTERY STENOSIS, BEING MONITORED. VARICOSE VEIN. DIVERTICULOSIS. SE NSITIVE SKIN. HX FX RT SHOULDER, RIBS, PUNCTURED LUNG. HX CYST POST LT KNEE. History of Any Multi-Drug Resistant Organisms: None Reported Past Surgical History: Bladder Surgery, Cholecystectomy, Hernia Repair, Hysterectomy, Joint Replacement, Orthopedic Surgery Additional Past Surgical History / Comment(s): D/T UTERINE CA, EXC ABD LYMPH NODES, REMOVAL TUBES/OVARIES. HX RT SHOULDER. COLONOSCOPY. CTR MARILOU. RT TOTAL KNEE 2010. Past Anesthesia/Blood Transfusion Reactions: No Reported Reaction Past Psychological History: Anxiety Smoking Status: Never smoker Past Alcohol Use History: None Reported Past Drug Use History: None Reported - Past Family History Father Family Medical History: Cancer <July Toribio - Last Filed: 01/19/24 13:17> General Exam Limitations: no limitations <July Toribio - Last Filed: 01/19/24 13:17> <Peter Davis - Last Filed: 01/19/24 19:04> - General Exam Comments Initial Comments: Visual Physical Exam Vital signs reviewed General: Well-appearing, nontoxic, no acute distress. Head: Normocephalic, atraumatic Eyes: PERRLA, EOMI ENT: Airway patent Chest: Nonlabored breathing Skin: No visual rash, normal skin tone Neuro: Alert and oriented 3 Musculoskeletal: No gross abnormalities (July Toribio) PHYSICAL EXAM: General Impression: Alert and oriented x3/4, not in acute distress HEENT: Normocephalic atraumatic, extra-ocular movements intact, pupils equal and reactive to light bilaterally, mucous membranes moist. Cardiovascular: Heart regular rate and rhythm Chest: Able to complete full sentences, no retractions, no tachypnea Abdomen: abdomen soft, non-tender, non-distended, no organomegaly Musculoskeletal: Pulses present and equal in all extremities, no peripheral edema Motor: no focal deficits noted Neurological: CN II-XII grossly intact, no focal motor or sensory deficits noted Skin: Intact with no visualized rashes Psych: Normal affect and mood (Peter Davis) Course Vital Signs 01/19/24 12:54 Temperature 98 F Pulse Rate 71 Respiratory 20 Rate Blood Pressure 165/71 O2 Sat by Pulse 95 Oximetry Medical Decision Making <July Toribio - Last Filed: 01/19/24 13:17> - Lab Data Result diagrams: 01/19/24 15:21 01/19/24 15:21 <Peter Davis - Last Filed: 01/19/24 19:04> - Medical Decision Making I performed the quick note portion of this chart. Electronically signed by July Toribio PA-C (July Toribio) Was pt. sent in by a medical professional or institution ([facility], HARNESS WORKER, urgent care, hospital, or custodial...) When possible be specific @ -No Did you speak to anyone other than the patient for history (EMS, parent, family, police, friend...)? What history was obtained from this source @ -History obtained from family member at the bedside as described above Did you review nursing and triage notes (agree or disagree)? Why? @ -I reviewed and agree with nursing and triage notes Were old charts reviewed (outside hosp., previous admission, EMS record, old EKG, old radiological studies, urgent care reports/EKG's, custodial records)? Report findings @ -No old charts were reviewed Differential Diagnosis (chest pain, altered mental status, abdominal pain women, abdominal pain men, vaginal bleeding, musculoskeletal, weakness, fever, dyspnea, syncope, headache, dizziness, GI bleed, back pain, seizure, CVA, palpatations, mental health)? @ -Differential Altered Mental Status: Hypoglycemia, DKA, hypercapnia, ETOH, overdose, CO poisoning, trauma, myxedema coma, HTN encephalopathy, infection, encephalitis, psychosis, intercranial hemorrhage, hepatic encephalopathy, meningitis, CVA, this is not meant to be an all-inclusive list EKG interpreted by me (3pts min.). @ -None done X-rays interpreted by me (1pt min.). @ -None done CT interpreted by me (1pt min.). @ -CT scan the brain shows no acute processes U/S interpreted by me (1pt. min.). @ -None done What testing was considered but not performed or refused? (CT, X-rays, U/S, labs)? Why? @ -None What meds were considered but not given or refused? Why? @ -None Was smoking cessation discussed for >3mins.? @ -No Were there social determinants of health that impacted care today? How? (Homelessness, low income, unemployed, alcoholism, drug addiction, transportation, low edu. Level, literacy, decrease access to med. care, intermediate, rehab)? @ -Poor social situation Was there de-escalation of care discussed even if they declined (Discuss DNR or withdrawal of care, Hospice)? DNR status @ -No What co-morbidities impacted this encounter? (DM, HTN, Smoking, COPD, CAD, Cancer, CVA, ARF, Chemo, Hep., AIDS, mental health diagnosis, sleep apnea, morbid obesity)? @ -None Was patient admitted / discharged? Hospital course, mention meds given and route, prescriptions, significant lab abnormalities, going to OR and other pertinent info. @ -83-year-old female brought by family member for altered mental status and poor social situation. Altered mental status is described as bizarre speech. Vital signs stable. Patient has no complaints. Laboratory evaluation is unremarkable. Case discussed with Dr. Weber for hospital admission. Patient allegedly has no one to care for her. Did you discuss the management of the patient with other professionals (professionals i.e. , PA, HARNESS WORKER, lab, RT, psych nurse, licensed social worker, frame assembler, teacher, chief security officer, case technician)? Give summary @ -See above Was critical care preformed (if so, how long)? @ -No Undiagnosed new problem with uncertain prognosis? @ -No Drug Therapy requiring intensive monitoring for toxicity (Heparin, Nitro, Insulin, Cardizem)? @ -No Were any procedures done? @ -No Diagnosis/symptom? Acute, or Chronic, or Acute on Chronic? Uncomplicated (without systemic symptoms) or Complicated (systemic symptoms)? @ -Gravely disabled Side effects of treatment? @ -No Exacerbation, Progression, or Severe Exacerbation? @ -No Poses a threat to life or bodily function? How? (Chest pain, USA, SC, pneumonia, PE, COPD, DKA, ARF, appy, cholecystitis, CVA, Diverticulitis, Homicidal, Suicidal, threat to staff... and all critical care pts) @ -yes (Peter Davis) - Lab Data Lab Results 01/19/24 01/19/24 01/19/24 Range/Units 13:17 15:21 15:21 WBC 7.6 (3.8-10.6) k/uL RBC 4.13 (3.80-5.40) m/uL Hgb 12.5 (11.4-16.0) gm/dL Hct 39.2 (34.0-46.0) % MCV 94.9 (80.0-100.0) fL MCH 30.4 (25.0-35.0) pg MCHC 32.0 (31.0-37.0) g/dL RDW 13.7 (11.5-15.5) % Plt Count 267 (150-450) k/uL MPV 7.8 Neutrophils % 63 % Lymphocytes % 28 % Monocytes % 7 % Eosinophils % 0 % Basophils % 0 % Neutrophils # 4.8 (1.3-7.7) k/uL Lymphocytes # 2.1 (1.0-4.8) k/uL Monocytes # 0.5 (0-1.0) k/uL Eosinophils # 0.0 (0-0.7) k/uL Basophils # 0.0 (0-0.2) k/uL Sodium 139 (137-145) mmol/L Potassium 4.3 (3.5-5.1) mmol/L Chloride 105 (98-107) mmol/L Carbon Dioxide 26 (22-30) mmol/L Anion Gap 8 mmol/L BUN 22 H (7-17) mg/dL Creatinine 1.14 H (0.52-1.04) mg/dL Est GFR (CKD-EPI)AfAm 51 (>60 ml/min/1.73 sqM) Est GFR (CKD-EPI)NonAf 44 (>60 ml/min/1.73 sqM) Glucose 106 H (74-99) mg/dL Calcium 9.8 (8.4-10.2) mg/dL Total Bilirubin 1.4 H (0.2-1.3) mg/dL AST 29 (14-36) U/L ALT 13 (4-34) U/L Alkaline Phosphatase 87 (38-126) U/L Total Protein 7.8 (6.3-8.2) g/dL Albumin 4.4 (3.5-5.0) g/dL Urine Color Colorless Urine Appearance Clear (Clear) Urine pH 7.0 (5.0-8.0) Ur Specific [place] 1.004 (1.001-1.035) Urine Protein Negative (Negative) Urine Glucose (UA) Negative (Negative) Urine Ketones Negative (Negative) Urine Blood Negative (Negative) Urine Nitrite Negative (Negative) Urine Bilirubin Negative (Negative) Urine Urobilinogen <2.0 (<2.0) mg/dL Ur Leukocyte Esterase Negative (Negative) Influenza Type A (PCR) (Not Detectd) Influenza Type B (PCR) (Not Detectd) RSV (PCR) (Not Detectd) SARS-CoV-2 (PCR) (Not Detectd) 01/19/24 Range/Units 15:21 WBC (3.8-10.6) k/uL RBC (3.80-5.40) m/uL Hgb (11.4-16.0) gm/dL Hct (34.0-46.0) % MCV (80.0-100.0) fL MCH (25.0-35.0) pg MCHC (31.0-37.0) g/dL RDW (11.5-15.5) % Plt Count (150-450) k/uL MPV Neutrophils % % Lymphocytes % % Monocytes % % Eosinophils % % Basophils % % Neutrophils # (1.3-7.7) k/uL Lymphocytes # (1.0-4.8) k/uL Monocytes # (0-1.0) k/uL Eosinophils # (0-0.7) k/uL Basophils # (0-0.2) k/uL Sodium (137-145) mmol/L Potassium (3.5-5.1) mmol/L Chloride (98-107) mmol/L Carbon Dioxide (22-30) mmol/L Anion Gap mmol/L BUN (7-17) mg/dL Creatinine (0.52-1.04) mg/dL Est GFR (CKD-EPI)AfAm (>60 ml/min/1.73 sqM) Est GFR (CKD-EPI)NonAf (>60 ml/min/1.73 sqM) Glucose (74-99) mg/dL Calcium (8.4-10.2) mg/dL Total Bilirubin (0.2-1.3) mg/dL AST (14-36) U/L ALT (4-34) U/L Alkaline Phosphatase (38-126) U/L Total Protein (6.3-8.2) g/dL Albumin (3.5-5.0) g/dL Urine Color Urine Appearance (Clear) Urine pH (5.0-8.0) Ur Specific [place] (1.001-1.035) Urine Protein (Negative) Urine Glucose (UA) (Negative) Urine Ketones (Negative) Urine Blood (Negative) Urine Nitrite (Negative) Urine Bilirubin (Negative) Urine Urobilinogen (<2.0) mg/dL Ur Leukocyte Esterase (Negative) Influenza Type A (PCR) Not Detected (Not Detectd) Influenza Type B (PCR) Not Detected (Not Detectd) RSV (PCR) Not Detected (Not Detectd) SARS-CoV-2 (PCR) Not Detected (Not Detectd) Disposition <July Toribio - Last Filed: 01/19/24 13:17> Decision Time: 19:04 <Peter Davis - Last Filed: 01/19/24 19:04> Clinical Impression: Gravely disabled Disposition: ADMITTED IP TO THIS HOSP Condition: Fair Referrals: Solitario Duke MD [Primary Care Provider] - 1-2 days
[2024-01-19 15:30] LABS: Basophils % (A) 0 %; Eosinophils % (A) 0 %; HCT 39.2 % (34.0-46.0); HGB 12.5 gm/dL (11.4-16.0); Lymphocytes # (A) 2.1 k/uL (1.0-4.8); Lymphocytes % (A) 28 %; MCH 30.4 pg (25.0-35.0); MCV 94.9 fL (80.0-100.0); Mean Platelet Volume 7.8; Monocytes # (A) 0.5 k/uL (0-1.0); Monocytes % (A) 7 %; Neutrophils # (A) 4.8 k/uL (1.3-7.7); Neutrophils % (A) 63 %; Platelet Count 267 k/uL (150-450); RBC 4.13 m/uL (3.80-5.40); RDW 13.7 % (11.5-15.5); WBC 7.6 k/uL (3.8-10.6)
[2024-01-19 15:52] LABS: ALT 13 U/L (4-34); AST 29 U/L (14-36); African American GFR (CKD) 51 (>60 ml/min/1.73 sqM); Albumin 4.4 g/dL (3.5-5.0); Alkaline Phosphatase 87 U/L (38-126); Anion Gap 8 mmol/L; Blood Urea Nitrogen 22 mg/dL (7-17); Calcium 9.8 mg/dL (8.4-10.2); Carbon Dioxide 26 mmol/L (22-30); Chloride 105 mmol/L (98-107); Glucose 106 mg/dL (74-99); Non-African American GFR(CKD) 44 (>60 ml/min/1.73 sqM); Potassium 4.3 mmol/L (3.5-5.1); Sodium 139 mmol/L (137-145); Total Bilirubin 1.4 mg/dL (0.2-1.3); Total Protein 7.8 g/dL (6.3-8.2)
--- NOTE | 2024-01-19 17:41 | CT ---
EXAMINATION TYPE: CT brain wo con DATE OF EXAM: 01/19/2024 COMPARISON: 11/05/2023 HISTORY: AMS CT DLP: 1067.4 mGycm Automated exposure control for dose reduction was used. Findings: The ventricles, basal cisterns and sulci over the convexities are within normal limits for the patien t's age and there is no mass effect or shift of midline structures. No abnormal density is seen throughout the brain parenchyma and there is no acute intra or extra-axia l hemorrhage. The posterior fossa including the brainstem, fourth ventricle and cerebellar pontine angles appear no rmal. Intraorbital contents appear normal and symmetric. Visualized paranasal sinuses and mastoid air cells are well aerated. The calvarium is intact. IMPRESSION: No significant abnormality seen. There is no acute bleed or mass effect. [facility], , 01/19/2024 5:39 PM
[2024-01-19 18:17] LABS: Appearance,Urine Clear (Clear); Bilirubin,Urine Negative (Negative); Blood,Urine Negative (Negative); Color,Urine Colorless; Glucose,Urine (UA) Negative (Negative); Ketones,Urine Negative (Negative); Leukocyte Esterase,Urine Negative (Negative); Nitrite,Urine Negative (Negative); Protein,Urine Negative (Negative); Specific Gravity,Urine 1.004 (1.001-1.035); Urobilinogen,Urine <2.0 mg/dL (<2.0)
[2024-01-19] MEDS ORDERED: NALOXONE 0.4 MG/ML 1 ML VIAL IV PRN (19:01)
[2024-01-19] MEDS: DONEPEZIL 5 MG TAB PO SCH (20:46)
--- NOTE | 2024-01-19 23:05 | P.HPIM ---
History of Present Illness H&P Date: 01/19/24 Chief Complaint: Altered mental status Patient is an 83-year-old female with PMH of dementia presenting to the ED with worsening confusion. The patient notes that she had taken out off of her kitchen silverware, as though she was preparing to leave somewhere. The patient then notes that her mother visited her and asked her where she was planning on going. The history was supplemented by the patient's daughter who notes that the patient has previously hallucinated about seeing and speaking with her mother and at times could not remember the names of her family members, and that she has had such behaviors in the past as well. Patient lives alone and uses a walker to ambulate. At time of interview, the patient is convinced that her mother is still alive, although "not well as she is nearing 89 years old". When asked about what brought her in to the hospital, patient states that "my memory isn't like it used to be, and my daughters are concerned". Patient mentioned that her daughters have brought up the idea of selling her home and having her move to a facility. Patient reports having a fall 1 month ago but denied frequent falls. Patient denies fever, chills, chest pain, shortness of breath, cough, dysuria, nausea, vomiting, diarrhea. Brain CT: No significant abnormality seen. There is no acute bleed or mass effect. Labs: WBC 7.6, BUN 22, Creatinine 1.14, T bili 1.4 UA: Unremarkable Respiratory panel: Negative Vitals: T 98F, P 70, RR 16 , BP 155/75, O2 sat 99% on RA ED documentation reviewed and case discussed with ED provider. Review of systems: Pertinent positives and negatives as discussed in HPI, a complete review of systems was performed and all other systems are negative. PMH: Hyperlipidemia, GERD/Reflux, CKD stage 3 FMH: CAD, HTN, DM Social history: Tobacco: Denies smoking Alcohol: Denies alcohol use Recreational drugs: Denies drugs Travel: No recent travel history Occupation: Retired Physical examination: Vital signs reviewed General: non toxic, no distress, appears at stated age Derm: no unusual rashes/lesions, warm Head: atraumatic, normocephalic, symmetric Eyes: EOMI, no lid lag, anicteric sclera, pupils equal round reactive to light ENT: Nose and ears atraumatic Neck: No cervical lymphadenopathy, supple Mouth: no lip lesion, mucus membranes moist Cardiovascular: S1S2 reg, no murmur Lungs: CTA bilateral, no rhonchi, no rales, no accessory muscle use Abdominal: soft, nontender to palpation, no guarding Ext: no gross muscle atrophy, no contractures, Neuro: CN II-XI grossly intact, no gross focal neuro deficits Psych: Alert & Oriented to self and year, knows she is in a hospital although could not recall the name, appropriate affect Assessment/Plan: Patient is an 83 year old female with PMH of dementia, presenting to the ED with worsening confusion and hallucinations #. Altered mental status with auditory and visual hallucinations in setting of dementia - C/w home Donepezil 5mg PO HS - Brain CT shows no significant abnormality. - Consult psychiatry in light of hallucinations #. CKD stage 3b, at baseline - Monitor BMP for now #. Hyperlipidemia - C/w Atorvastatin 10 mg PO daily #. GERD - C/w Famotidine 40 mg PO daily F: None E: Replete electrolytes as needed N: Heart healthy diet A: Ambulatory with walker DVT prophylaxis: IPCDs The patient is admitted with an anticipated more than 2 midnight stay for evaluation of altered mental status CODE STATUS: Full Code Discussed with: Patient and daughter Past Medical History Past Medical History: Cancer, Diabetes Mellitus, Eye Disorder, GERD/Reflux, Hyperlipidemia, Hypertension, Osteoarthritis (OA), Skin Disorder Additional Past Medical History / Comment(s): UTERINE CA. GLAUCOMA, LT WORSE. CAROTID ARTERY STENOSIS, BEING MONITORED. VARICOSE VEIN. DIVERTICULOSIS. SENSITIVE SKIN. HX FX RT SHOULDER, RIBS, PUNCTURED LUNG. HX CYST POST LT KNEE. History of Any Multi-Drug Resistant Organisms: None Reported Past Surgical History: Bladder Surgery, Cholecystectomy, Hernia Repair, Hysterectomy, Joint Replacement, Orthopedic Surgery Additional Past Surgical History / Comment(s): D/T UTERINE CA, EXC ABD LYMPH NODES, REMOVAL TUBES/OVARIES. HX RT SHOULDER. COLONOSCOPY. CTR MARILOU. RT TOTAL KNEE 2010. Past Anesthesia/Blood Transfusion Reactions: No Reported Reaction Past Psychological History: Anxiety Smoking Status: Never smoker Past Alcohol Use History: None Reported Past Drug Use History: None Reported - Past Family History Father Family Medical History: Cancer Medications and Allergies Home Medications Medication Instructions Recorded Confirmed Type Atorvastatin [Lipitor] 10 mg PO DAILY 07/19/16 01/19/24 History Donepezil [Aricept] 5 mg PO HS 01/19/24 01/19/24 History Famotidine [Pepcid] 40 mg PO DAILY 01/19/24 01/19/24 History Allergies Allergy/AdvReac Type Severity Reaction Status Date / Time acetaminophen [From Vicodin] AdvReac Severe Vomiting Verified 01/19/24 18:47 hydrocodone [From Vicodin] AdvReac Severe Vomiting Verified 01/19/24 18:47 amlodipine [From Norvasc] AdvReac Nausea & Verified 01/19/24 18:47 Vomiting atenolol AdvReac Nausea & Verified 01/19/24 18:47 Vomiting cefaclor [From Ceclor] AdvReac Nausea & Verified 01/19/24 18:47 Vomiting cephalexin AdvReac Nausea & Verified 01/19/24 18:47 Vomiting doxycycline AdvReac Nausea & Verified 01/19/24 18:47 Vomiting levofloxacin [From Levaquin] AdvReac Nausea & Verified 01/19/24 18:47 Vomiting loratadine AdvReac Nausea & Verified 01/19/24 18:47 [From Claritin-D 12 Hour] Vomiting pseudoephedrine AdvReac Nausea & Verified 01/19/24 18:47 [From Claritin-D 12 Hour] Vomiting terfenadine [From Seldane-D] AdvReac Nausea & Verified 01/19/24 18:47 Vomiting triamterene AdvReac Nausea & Verified 01/19/24 18:47 Vomiting Physical Exam Vitals: Vital Signs Temp Pulse Resp BP Pulse Ox 01/19/24 12:54 98 F 71 20 165/71 95 Intake and Output 01/19/24 01/19/24 01/19/24 06:59 14:59 22:59 Other: Weight 97.522 kg Results CBC & Chem 7: 01/19/24 15:21 01/19/24 15:21 Labs: Abnormal Lab Results - Last 24 Hours (Table) 01/19/24 Range/Units 15:21 BUN 22 H (7-17) mg/dL Creatinine 1.14 H (0.52-1.04) mg/dL Glucose 106 H (74-99) mg/dL Total Bilirubin 1.4 H (0.2-1.3) mg/dL
[2024-01-20] MEDS: IBUPROFEN 200 MG TAB PO STA (05:27)
[2024-01-20 07:26] LABS: African American GFR (CKD) 62 (>60 ml/min/1.73 sqM); Anion Gap 8 mmol/L; Blood Urea Nitrogen 22 mg/dL (7-17); Calcium 9.2 mg/dL (8.4-10.2); Carbon Dioxide 23 mmol/L (22-30); Chloride 107 mmol/L (98-107); Glucose 112 mg/dL (74-99); Non-African American GFR(CKD) 54 (>60 ml/min/1.73 sqM); Sodium 138 mmol/L (137-145)
[2024-01-20 07:31] LABS: Potassium 4.1 mmol/L (3.5-5.1)
[2024-01-20] MEDS: FAMOTIDINE 20 MG TAB PO SCH (09:03)
[2024-01-20] MEDS: ATORVASTATIN 10 MG TAB PO SCH (09:03)
--- NOTE | 2024-01-20 14:00 | P.PN ---
Subjective Progress Note Date: 01/20/24 No new complaints. Pt is resting comfortably in bed. Gen: In NAD, non-toxic HEENT: normocephalic, atraumatic, hearing acuity is intant, mucous membranes moist CVS: perfusing all extremities well, no pitting edema, Respiratory: symmetric chest expansion, no accessory muscle use, GI: soft, NTTP, ND, : no suprapubic tenderness, no CVA tenderness MSK/Derm: no rashes, cyanosis Neuro: CN II-XII intact, no motor weakness, Hospital course: Patient is an 83-year-old female with PMH of dementia presenting to the ED with worsening confusion. Brain CT: No significant abnormality seen. There is no acute bleed or mass effect. Labs: WBC 7.6, BUN 22, Creatinine 1.14, T bili 1.4 UA: Unremarkable Respiratory panel: Negative Vitals: T 98F, P 70, RR 16 , BP 155/75, O2 sat 99% on RA Assessment/Plan: Patient is an 83 year old female with PMH of dementia, presenting to the ED with worsening confusion and hallucinations #. Altered mental status with auditory and visual hallucinations in setting of dementia - C/w home Donepezil 5mg PO HS - Brain CT shows no significant abnormality. - Consult psychiatry in light of hallucinations #. CKD stage 3b, at baseline - Monitor BMP for now #. Hyperlipidemia - C/w Atorvastatin 10 mg PO daily #. GERD - C/w Famotidine 40 mg PO daily F: None E: Replete electrolytes as needed N: Heart healthy diet A: Ambulatory with walker DVT prophylaxis: IPCDs The patient is admitted with an anticipated more than 2 midnight stay for evaluation of altered mental status CODE STATUS: Full Code, needs to be reassess with family Discussed with: Patient and daughter Objective - Vital Signs Vital signs: Vital Signs Temp 97.8 F 01/20/24 13:56 Pulse 68 01/20/24 13:56 Resp 16 01/20/24 13:56 BP 128/70 01/20/24 13:56 Pulse Ox 96 01/20/24 13:56 FiO2 Intake & Output 01/19/24 01/20/24 01/20/24 18:59 06:59 18:59 Weight 97.522 kg - Labs CBC & Chem 7: 01/19/24 15:21 01/20/24 06:53 Labs: Abnormal Lab Results - Last 24 Hours (Table) 01/19/24 01/20/24 Range/Units 15:21 06:53 BUN 22 H 22 H (7-17) mg/dL Creatinine 1.14 H (0.52-1.04) mg/dL Glucose 106 H 112 H (74-99) mg/dL Total Bilirubin 1.4 H (0.2-1.3) mg/dL
--- NOTE | 2024-01-20 17:04 | P.CN ---
Psychiatric Consult - . Consult date: 01/20/24 Consult:: 01/20/24 17:01 CONSULTATION Reason for consult: hallucinations. identifying Data: The patient is a 83 year old, , white female, who lives in [facility], Reason for admission: History of present illness: The patient was brought to the emergency department for altered mental status. After initial examination and other work-up, the patient was transferred to medical floor for further management. During this evaluation, the patient reported that she does not know why she is here. She stated that she was packing everything and moving out but she really did not know where she was going. She does not know how she ended up here. She does not know what kind of place is this. She does not know what city it is in. She could not give the name of the city she lives in. The patient was oriented X 1 She was unable to provide any meaningful history. As per nursing staff, the patient is confused and her memory is poor. She noted that she may be like this for 2 years. As per patients daughter her mother has shown memory issues for past 6 months to 1 year. As per daughter she, was seen by a neurologist but no firm diagnosis has been made. She is still undergoing evaluation. On leading questions denied depression, anxiety, hopelessness, worthlessness, suicidal or homicidal ideations. The patient denied any symptoms of paranoia, or any other delusional thinking, A/V hallucinations. Current and past medications: Aricept as per EMR. History of past psychiatric illness: No other than stated in HPI. No history of suicidal or homicidal ideations or behavior. Past medical history: DM, HTN, GERD, OA. Substance abuse history: None reported MSE: Alert and attentive Orientation X1. Pleasant and cooperative. Psychomotor activity: Speech: Normal tone, quality, and quantity Mood: I am fine. Affect: Anxious. SI or HI: None Thought content: Normal Thought process: Normal Perceptual disturbance: Normal Cognition: significant memory decline, confusion, confabulations, Global decline of higher cognitive functions-Moderate. Judgement and Insight: Poor. Diagnosis: Senile Dementia of Alzheimers Type. REC: Neurology consult to r/o treatable causes of dementia. The patient will need 24 hrs. supervised living facility following discharge. Will sign off the case.
--- NOTE | 2024-01-21 13:53 | P.PN ---
Subjective Progress Note Date: 01/21/24 Hospital Course: 83-year-old female with history of dementia, dyslipidemia presenting with wors ening confusion. On presentation, vital signs within normal limits, laboratory workup unremarkable except for creatinine of 1.14. Urinalysis was negative. Respiratory viral panel negative. CT head did not show any acute process. Psychiatry also consulted for occasional hallucinations, likely related to dementia. Patient pending discharge to subacute rehab. Subjective: Patient seen and examined at bedside. No acute events overnight. Pertinent positives and negatives as discussed above, a complete review of systems was performed and all other systems are negative. Vitals Signs Reviewed. Temperature 98.2, pulse 67, respiratory 17, blood pressure 142/60, saturating at 97% on room air. General: Nontoxic, no distress, appears at stated age Derm: Warm, dry Head: Atraumatic, normocephalic, symmetric Eyes: EOMI, no lid lag, anicteric sclera Mouth: No lip lesion, mucus membranes moist Cardiovascular: S1S2 reg, no murmur Lungs: CTA bilateral, no rhonchi, no rales, no accessory muscle use Abdominal: Soft, nontender to palpation, no guarding, no appreciable organomegaly Ext: No gross muscle atrophy, no edema, no contractures Neuro: CN II-XI grossly intact, no focal neuro deficits Psych: Alert, oriented, appropriate affect Data Reviewed Today: Pertinent Labs: no new labs Imaging: No new imaging Assessment and Plan: Acute encephalopathy with auditory and visual hallucination, resolved Worsening dementia -Psychiatry note reviewed, likely all related to dementia -Continue donepezil 5 mg nightly -Outpatient neurology follow-up Dyslipidemia -Continue atorvastatin 10 mg daily GERD -Continue famotidine 40 mg daily DVT ppx: Lovenox Code status: Full code Anticipated discharge place: Subacute rehab Anticipated discharge time: Pending Auth Objective - Vital Signs Vital signs: Vital Signs Temp 98.2 F 01/21/24 07:33 Pulse 67 01/21/24 07:33 Resp 17 01/21/24 07:33 BP 142/60 01/21/24 07:33 Pulse Ox 97 01/21/24 07:33 FiO2 Intake & Output 01/20/24 01/21/24 01/21/24 18:59 06:59 18:59 Intake Total 240 Balance 240 Weight 97.522 kg Intake: Oral 240 Other: # Voids 1 2 1 # Bowel Movements 1 - Labs CBC & Chem 7: 01/19/24 15:21 01/20/24 06:53
[2024-01-22] MEDS: ENOXAPARIN 40 MG/0.4 ML SYRINGE SQ SCH (08:23)
--- NOTE | 2024-01-22 13:26 | P.PN ---
Subjective Progress Note Date: 01/22/24 Hospital Course: 83-year-old female with history of dementia, dyslipidemia presenting with wors ening confusion. On presentation, vital signs within normal limits, laboratory workup unremarkable except for creatinine of 1.14. Urinalysis was negative. Respiratory viral panel negative. CT head did not show any acute process. Psychiatry also consulted for occasional hallucinations, likely related to dementia. Patient pending discharge to subacute rehab. Subjective: Patient seen and examined at bedside. No acute events overnight. Pertinent positives and negatives as discussed above, a complete review of systems was performed and all other systems are negative. Vitals Signs Reviewed. Temperature 97.7, pulse 94, respiratory 17, blood pressure 177/74, saturating 98% on room air General: Nontoxic, no distress, appears at stated age Derm: Warm, dry Head: Atraumatic, normocephalic, symmetric Eyes: EOMI, no lid lag, anicteric sclera Mouth: No lip lesion, mucus membranes moist Cardiovascular: S1S2 reg, no murmur Lungs: CTA bilateral, no rhonchi, no rales, no accessory muscle use Abdominal: Soft, nontender to palpation, no guarding, no appreciable organomegaly Ext: No gross muscle atrophy, no edema, no contractures Neuro: CN II-XI grossly intact, no focal neuro deficits Psych: Alert, oriented, appropriate affect Data Reviewed Today: Pertinent Labs: no new labs Imaging: No new imaging Assessment and Plan: Acute encephalopathy with auditory and visual hallucination, resolved Worsening dementia -Psychiatry note reviewed, likely all related to dementia -Continue donepezil 5 mg nightly -Outpatient neurology follow-up Dyslipidemia -Continue atorvastatin 10 mg daily GERD -Continue famotidine 40 mg daily Hypertension -Likely in the setting of being in the hospital -Continue to monitor DVT ppx: Lovenox Code status: Full code Anticipated discharge place: Subacute rehab Anticipated discharge time: Pending Auth Objective - Vital Signs Vital signs: Vital Signs Temp 97.7 F 01/22/24 07:40 Pulse 94 01/22/24 07:40 Resp 17 01/22/24 07:40 BP 177/74 01/22/24 07:40 Pulse Ox 98 01/22/24 07:40 FiO2 Intake & Output 01/21/24 01/22/24 01/22/24 18:59 06:59 18:59 Intake Total 540 Balance 540 Intake: Oral 540 Other: # Voids 2 3 # Bowel Movements 1 - Labs CBC & Chem 7: 01/19/24 15:21 01/20/24 06:53
--- NOTE | 2024-01-23 12:58 | P.PN ---
Subjective Progress Note Date: 01/23/24 Hospital Course: 83-year-old female with history of dementia, dyslipidemia presenting with wors ening confusion. On presentation, vital signs within normal limits, laboratory workup unremarkable except for creatinine of 1.14. Urinalysis was negative. Respiratory viral panel negative. CT head did not show any acute process. Psychiatry also consulted for occasional hallucinations, likely related to dementia. Patient pending discharge to subacute rehab. Subjective: Patient seen and examined at bedside. No acute events overnight. Pertinent positives and negatives as discussed above, a complete review of systems was performed and all other systems are negative. Vitals Signs Reviewed. Temperature 97.9, pulse 61, respiratory rate 16, blood pressure 116/75, saturating at 97% on room air. General: Nontoxic, no distress, appears at stated age Derm: Warm, dry Head: Atraumatic, normocephalic, symmetric Eyes: EOMI, no lid lag, anicteric sclera Mouth: No lip lesion, mucus membranes moist Cardiovascular: S1S2 reg, no murmur Lungs: CTA bilateral, no rhonchi, no rales, no accessory muscle use Abdominal: Soft, nontender to palpation, no guarding, no appreciable organomegaly Ext: No gross muscle atrophy, no edema, no contractures Neuro: CN II-XI grossly intact, no focal neuro deficits Psych: Alert, oriented, appropriate affect Data Reviewed Today: Pertinent Labs: no new labs Imaging: No new imaging Assessment and Plan: Acute encephalopathy with auditory and visual hallucination, resolved Worsening dementia -Psychiatry note reviewed, likely all related to dementia -Continue donepezil 5 mg nightly -Outpatient neurology follow-up Dyslipidemia -Continue atorvastatin 10 mg daily GERD -Continue famotidine 40 mg daily Hypertension -Likely in the setting of being in the hospital -Continue to monitor DVT ppx: Lovenox Code status: Full code Anticipated discharge place: Subacute rehab Anticipated discharge time: Pending Auth Objective - Vital Signs Vital signs: Vital Signs Temp 97.9 F 01/23/24 08:00 Pulse 61 01/23/24 08:00 Resp 16 01/23/24 08:00 BP 116/75 01/23/24 08:00 Pulse Ox 97 01/23/24 08:00 FiO2 Intake & Output 01/22/24 01/23/24 01/23/24 18:59 06:59 18:59 Intake Total 540 Balance 540 Intake: Oral 540 Other: # Voids 1 3 - Labs CBC & Chem 7: 01/19/24 15:21 01/20/24 06:53
[2024-01-23] MEDS: ACETAMINOPHEN TAB 325 MG TAB PO PRN (15:01)
--- NOTE | 2024-01-24 13:39 | P.PN ---
Subjective Progress Note Date: 01/24/24 Hospital Course: 83-year-old female with history of dementia, dyslipidemia presenting with wors ening confusion. On presentation, vital signs within normal limits, laboratory workup unremarkable except for creatinine of 1.14. Urinalysis was negative. Respiratory viral panel negative. CT head did not show any acute process. Psychiatry also consulted for occasional hallucinations, likely related to dementia. Patient pending discharge to subacute rehab. Subjective: Patient seen and examined at bedside. No acute events overnight. Pertinent positives and negatives as discussed above, a complete review of systems was performed and all other systems are negative. Vitals Signs Reviewed. Temperature 97.9, pulse 60, respiratory rate 17, blood pressure 114/54, saturating at 97% on room air General: Nontoxic, no distress, appears at stated age Derm: Warm, dry Head: Atraumatic, normocephalic, symmetric Eyes: EOMI, no lid lag, anicteric sclera Mouth: No lip lesion, mucus membranes moist Cardiovascular: S1S2 reg, no murmur Lungs: CTA bilateral, no rhonchi, no rales, no accessory muscle use Abdominal: Soft, nontender to palpation, no guarding, no appreciable organomegaly Ext: No gross muscle atrophy, no edema, no contractures Neuro: CN II-XI grossly intact, no focal neuro deficits Psych: Alert, oriented, appropriate affect Data Reviewed Today: Pertinent Labs: no new labs Imaging: No new imaging Assessment and Plan: Acute encephalopathy with auditory and visual hallucination, resolved Worsening dementia -Psychiatry note reviewed, likely all related to dementia -Continue donepezil 5 mg nightly -Outpatient neurology follow-up Dyslipidemia -Continue atorvastatin 10 mg daily GERD -Continue famotidine 40 mg daily Hypertension -Likely in the setting of being in the hospital -Continue to monitor DVT ppx: Lovenox Code status: Full code Anticipated discharge place: Subacute rehab Anticipated discharge time: Pending Auth Objective - Vital Signs Vital signs: Vital Signs Temp 97.9 F 01/24/24 07:34 Pulse 60 01/24/24 07:34 Resp 17 01/24/24 07:34 BP 114/54 01/24/24 07:34 Pulse Ox 97 01/24/24 07:34 FiO2 Intake & Output 01/23/24 01/24/24 01/24/24 18:59 06:59 18:59 Intake Total 540 Balance 540 Intake: Oral 540 Other: Voiding Method Toilet # Voids 1 1 - Labs CBC & Chem 7: 01/19/24 15:21 01/20/24 06:53
--- NOTE | 2024-01-25 12:32 | P.PN ---
Subjective Progress Note Date: 01/25/24 Hospital Course: 83-year-old female with history of dementia, dyslipidemia presenting with wors ening confusion. On presentation, vital signs within normal limits, laboratory workup unremarkable except for creatinine of 1.14. Urinalysis was negative. Respiratory viral panel negative. CT head did not show any acute process. Psychiatry also consulted for occasional hallucinations, likely related to dementia. Patient pending discharge to subacute rehab. Subjective: Patient seen and examined at bedside. No acute events overnight. Pertinent positives and negatives as discussed above, a complete review of systems was performed and all other systems are negative. Vitals Signs Reviewed. Temperature 98, pulse 64, t respiratory rate 16, blood pressure 141/62, saturating 97% on room air General: Nontoxic, no distress, appears at stated age Derm: Warm, dry Head: Atraumatic, normocephalic, symmetric Eyes: EOMI, no lid lag, anicteric sclera Mouth: No lip lesion, mucus membranes moist Cardiovascular: S1S2 reg, no murmur Lungs: CTA bilateral, no rhonchi, no rales, no accessory muscle use Abdominal: Soft, nontender to palpation, no guarding, no appreciable organomegaly Ext: No gross muscle atrophy, no edema, no contractures Neuro: CN II-XI grossly intact, no focal neuro deficits Psych: Alert, oriented, appropriate affect Data Reviewed Today: Pertinent Labs: no new labs Imaging: No new imaging Assessment and Plan: Acute encephalopathy with auditory and visual hallucination, resolved Worsening dementia -Psychiatry note reviewed, likely all related to dementia -Continue donepezil 5 mg nightly -Outpatient neurology follow-up Dyslipidemia -Continue atorvastatin 10 mg daily GERD -Continue famotidine 40 mg daily Hypertension -Likely in the setting of being in the hospital -Continue to monitor DVT ppx: Lovenox Code status: Full code Anticipated discharge place: Subacute rehab Anticipated discharge time: Pending Auth Objective - Vital Signs Vital signs: Vital Signs Temp 98.0 F 01/25/24 12:09 Pulse 64 01/25/24 12:09 Resp 16 01/25/24 12:09 BP 141/62 01/25/24 12:09 Pulse Ox 97 01/25/24 12:09 FiO2 Intake & Output 01/24/24 01/25/24 01/25/24 18:59 06:59 18:59 Intake Total 880 Balance 880 Intake: Oral 880 Other: Voiding Method Toilet # Voids 2 3 2 # Bowel Movements 1 - Labs CBC & Chem 7: 01/19/24 15:21 01/20/24 06:53
[2024-01-26 11:32] VITALS: BMI 39.3
--- NOTE | 2024-01-26 15:48 | P.PN ---
Subjective Progress Note Date: 01/26/24 Hospital Course: 83-year-old female with history of dementia, dyslipidemia presenting with wors ening confusion. On presentation, vital signs within normal limits, laboratory workup unremarkable except for creatinine of 1.14. Urinalysis was negative. Respiratory viral panel negative. CT head did not show any acute process. Psychiatry also consulted for occasional hallucinations, likely related to dementia. Patient pending discharge to subacute rehab. Subjective: Patient seen and examined at bedside. No acute events overnight. Pertinent positives and negatives as discussed above, a complete review of systems was performed and all other systems are negative. Vitals Signs Reviewed. Temperature 97.9, pulse 63, respiratory rate 16, blood pressure 129/62, saturating 98% on room air General: Nontoxic, no distress, appears at stated age Derm: Warm, dry Head: Atraumatic, normocephalic, symmetric Eyes: EOMI, no lid lag, anicteric sclera Mouth: No lip lesion, mucus membranes moist Cardiovascular: S1S2 reg, no murmur Lungs: CTA bilateral, no rhonchi, no rales, no accessory muscle use Abdominal: Soft, nontender to palpation, no guarding, no appreciable organomegaly Ext: No gross muscle atrophy, no edema, no contractures Neuro: CN II-XI grossly intact, no focal neuro deficits Psych: Alert, oriented, appropriate affect Data Reviewed Today: Pertinent Labs: no new labs Imaging: No new imaging Assessment and Plan: Acute encephalopathy with auditory and visual hallucination, resolved Worsening dementia -Psychiatry note reviewed, likely all related to dementia -Continue donepezil 5 mg nightly -Outpatient neurology follow-up Dyslipidemia -Continue atorvastatin 10 mg daily GERD -Continue famotidine 40 mg daily Hypertension -Likely in the setting of being in the hospital -Continue to monitor DVT ppx: Lovenox Code status: Full code Anticipated discharge place: Subacute rehab Anticipated discharge time: Pending Auth Objective - Vital Signs Vital signs: Vital Signs Temp 97.9 F 01/26/24 12:18 Pulse 63 01/26/24 12:18 Resp 16 01/26/24 12:18 BP 129/62 01/26/24 12:18 Pulse Ox 98 01/26/24 12:18 FiO2 Intake & Output 01/25/24 01/26/24 01/26/24 18:59 06:59 18:59 Weight 97.522 kg Other: Voiding Method Toilet # Voids 4 1 3 # Bowel Movements 1 - Labs CBC & Chem 7: 01/19/24 15:21 01/20/24 06:53
--- NOTE | 2024-01-27 16:48 | P.PN ---
Subjective Progress Note Date: 01/27/24 Hospital course: Patient is a pleasant 83-year-old female with a past medical history of hypertension, hyperlipidemia, CKD stage IIIa, GERD, and dementia. She presented to the emergency department on 01/19/2024 secondary to worsening confusion and hallucinations. Upon arrival to our facility, patient underwent evaluation in the emergency department. Vital signs upon arrival show blood pressure 165/71, heart rate 71, respiratory rate 20, temp 98.0 F, and SpO2 of 95% on room air. CT brain without contrast was completed negative for acute intracranial abno rmality. Labs completed and reviewed. CBC was unremarkable. BMP showing renal function stable with known stage IIIa CKD with BUN of 22, creatinine of 1.14, GFR 44. Glucose was 106. Liver profile showing elevated total bili of 1.4 otherwise normal findings. Urinalysis negative for infection. Influenza A, influenza B, RSV, and COVID PCR were negative. Patient was admitted under our services with consultation to psychiatry. Psychiatry evaluated reporting hallucinations likely secondary to dementia and recommending continue with donezepil 5 mg nightly. Patient was also evaluated by PT/OT recommending senior living facility for placement. Patient awaiting insurance authorization at this time requesting discharge to [facility]. Physical exam: Vital signs reviewed and stable. General: Nontoxic, no distress and appears stated age. Derm: Skin warm and dry, normal coloration for ethnicity. Head: Atraumatic, normocephalic and symmetric. Eyes: EOM's intact, no lid lag, and anicteric sclera Mouth: no lip lesions, mucus membranes moist Cardiovascular: regular rate and rhythm with normal S1S2, no murmur, positive posterior tibial pulses bilaterally, and cap refill < 2 seconds. Lungs: Respirations even, regular, and unlabored on room air. Lungs CTA bilaterally, no rhonchi, no rales, no wheezing, and no accessory muscle usage. Abdominal: soft, nontender to palpation, no guarding, no appreciable organomegaly Ext: ROM intact. No gross muscle atrophy, no edema, no contractures Neuro: Speech clear, face symmetrical and CN II-XII grossly intact with no noted focal neuro deficits Psych: Alert and oriented to person, place, time, and situation. Appropriate and pleasant affect. Assessment and Plan of Care: Acute encephalopathy with auditory and visual hallucination, resolved Worsening dementia -Psychiatry note reviewed, likely all related to dementia -Continue donepezil 5 mg nightly -Outpatient neurology follow-up Dyslipidemia -Continue atorvastatin 10 mg daily GERD -Continue famotidine 40 mg daily Hypertension -Likely in the setting of being in the hospital, currently stable with blood pressure 132/68 and heart rate 68. -Continue to monitor Data and imaging reviewed: Blood pressure 132/68, heart rate 68, respiratory rate 16, temp 97.7 F, and SpO2 of 94% on room air. CODE STATUS: Full code DVT prophylaxis: Lovenox Discussed with: Patient, patient's daughter, case management/social work and RN Anticipated discharge date: Patient medically stable for discharge, awaiting insurance authorization. Anticipated discharge place: snf facility, requesting discharge to [facility]. Patient was seen independently by Nurse Pracitioner. This document was prepared using [employer] dictation software. Please allow for errors in director digital communications, while rare they do occur. Estiven Choi NP rendered care for this patient independently, reviewed the findings and plan as documented in the note above. I did not physically speak with or examine the patient on this date. Objective - Vital Signs Vital signs: Vital Signs Temp 97.9 F 01/27/24 13:23 Pulse 68 01/27/24 13:23 Resp 16 01/27/24 13:23 BP 120/64 01/27/24 13:23 Pulse Ox 98 01/27/24 13:23 FiO2 Intake & Output 01/26/24 01/27/24 01/27/24 18:59 06:59 18:59 Intake Total 120 Balance 120 Weight 97.522 kg Intake: Oral 120 Other: Voiding Method Toilet Toilet # Voids 1 1 # Bowel Movements 1 - Labs CBC & Chem 7: 01/19/24 15:21 01/20/24 06:53
[2024-01-28 08:57] LABS: HCT 38.7 % (37.2-46.3); HGB 12.3 g/dL (12.0-15.0); MCH 29.7 pg (27.0-32.0); MCHC 31.8 g/dL (32.0-37.0); MCV 93.5 FL (80.0-97.0); Mean Platelet Volume 10.7 FL (9.5-12.2); NRBC Per 100 WBC 0 X 10*3/uL (0.00-0.01); Platelet Count 293 X 10*3/uL (140-440); RBC 4.14 X 10*6/uL (4.10-5.20); RDW 14.1 % (11.5-14.5); WBC 5.84 X 10*3/uL (4.50-10.00)
[2024-01-28 09:01] LABS: ALT 12 U/L (8-44); AST 26 U/L (13-35); Albumin 3.8 g/dL (3.8-4.9); Albumin/Globulin Ratio 1.36 Ratio (1.60-3.17); Alkaline Phosphatase 71 U/L (41-126); BUN/Creat Ratio 23.56 Ratio (12.00-20.00); Blood Urea Nitrogen 21.2 mg/dL (9.0-27.0); Carbon Dioxide 24.2 mmol/L (21.6-31.8); Chloride 106 mmol/L (96-109); Globulin 2.8 g/dL (1.6-3.3); Glucose 103 mg/dL (70-110); Potassium 4.1 mmol/L (3.5-5.5); Sodium 140 mmol/L (135-145); Total Bilirubin 0.6 mg/dL (0.3-1.2); Total Protein 6.6 g/dL (6.2-8.2)
[2024-01-28 13:29] VITALS: BP 123/56; PULSE 59; RESP 18; TEMP 97.6
--- NOTE | 2024-01-28 15:48 | P.PN ---
Subjective Progress Note Date: 01/28/24 Hospital course: Patient is a pleasant 83-year-old female with a past medical history of hypertension, hyperlipidemia, CKD stage IIIa, GERD, and dementia. She presented to the emergency department on 01/19/2024 secondary to worsening confusion and hallucinations. Upon arrival to our facility, patient underwent evaluation in the emergency department. Vital signs upon arrival show blood pressure 165/71, heart rate 71, respiratory rate 20, temp 98.0 F, and SpO2 of 95% on room air. CT brain without contrast was completed negative for acute intracranial abno rmality. Labs completed and reviewed. CBC was unremarkable. BMP showing renal function stable with known stage IIIa CKD with BUN of 22, creatinine of 1.14, GFR 44. Glucose was 106. Liver profile showing elevated total bili of 1.4 otherwise normal findings. Urinalysis negative for infection. Influenza A, influenza B, RSV, and COVID PCR were negative. Patient was admitted under our services with consultation to psychiatry. Psychiatry evaluated reporting hallucinations likely secondary to dementia and recommending continue with donezepil 5 mg nightly. Patient was also evaluated by PT/OT recommending snf facility for placement. Patient awaiting insurance authorization at this time requesting discharge to [facility]. Physical exam: Vital signs reviewed and stable. General: Nontoxic, no distress and appears stated age. Derm: Skin warm and dry, normal coloration for ethnicity. Head: Atraumatic, normocephalic and symmetric. Eyes: EOM's intact, no lid lag, and anicteric sclera Mouth: no lip lesions, mucus membranes moist Cardiovascular: regular rate and rhythm with normal S1S2, no murmur, positive posterior tibial pulses bilaterally, and cap refill < 2 seconds. Lungs: Respirations even, regular, and unlabored on room air. Lungs CTA bilaterally, no rhonchi, no rales, no wheezing, and no accessory muscle usage. Abdominal: soft, nontender to palpation, no guarding, no appreciable organomegaly Ext: ROM intact. No gross muscle atrophy, no edema, no contractures Neuro: Speech clear, face symmetrical and CN II-XII grossly intact with no noted focal neuro deficits Psych: Alert and oriented to person, place, time, and situation. Appropriate and pleasant affect. Assessment and Plan of Care: Acute encephalopathy with auditory and visual hallucination, resolved Worsening dementia -Psychiatry note reviewed, likely all related to dementia -Continue donepezil 5 mg nightly -Outpatient neurology follow-up Dyslipidemia -Continue atorvastatin 10 mg daily GERD -Continue famotidine 40 mg daily Hypertension -Likely in the setting of being in the hospital, currently stable with blood pressure 132/68 and heart rate 68. -Continue to monitor Data and imaging reviewed: Morning labs reviewed. CBC unremarkable. BMP normal findings. Magnesium 2.0. Liver profile unremarkable. Vital signs reviewed. Blood pressure 151/72, heart rate 74, respiratory rate 16, temp 98.3 F, and SpO2 of 99% on room air. CODE STATUS: Full code DVT prophylaxis: Lovenox Discussed with: Patient, patient's daughter, case management/social work and RN Anticipated discharge date: Patient medically stable for discharge, awaiting insurance authorization. Discussed with case management this morning stating insurance authorization still pending. Anticipated discharge place: long term facility, requesting discharge to [facility]. Patient was seen independently by Nurse Pracitioner. This document was prepared using [employer] dictation software. Please allow for errors in firestopper installer, while rare they do occur. Estiven Choi NP rendered care for this patient independently, reviewed the f indings and plan as documented in the note above. I did not physically speak with or examine the patient on this date. Objective - Vital Signs Vital signs: Vital Signs Temp 98.3 F 01/28/24 08:00 Pulse 74 01/28/24 08:00 Resp 16 01/28/24 08:00 BP 151/72 01/28/24 08:00 Pulse Ox 99 01/28/24 08:00 FiO2 Intake & Output 01/27/24 01/28/24 01/28/24 18:59 06:59 18:59 Intake Total 660 590 Balance 660 590 Intake: Oral 660 590 Other: Voiding Method Toilet Toilet # Voids 1 3 - Labs CBC & Chem 7: 01/28/24 05:12 01/28/24 05:12
--- NOTE | 2024-01-28 16:07 | P.DS ---
Providers Date of admission: 01/19/24 19:01 Expected date of discharge: 01/28/24 Attending physician: Jose Weber MD Consults: 01/20/24 00:15 Consult Physician Urgent Consulting Provider: Armin Choe Consult Reason/Comments: Hallucinations Do you want consulting provider notified?: Yes Primary care physician: Solitario Duke Hospital Course: Discharge Diagnosis: Acute encephalopathy with auditory and visual hallucination, resolved. Psychiatry evaluated stating likely secondary to dementia and recommending continuing with donepezil 5 mg nightly Worsening dementia. Continue donepezil 5 mg nightly. Outpatient neurology follow-up. Patient being discharged to SNF. Dyslipidemia. Continue atorvastatin 10 mg daily GERD. Continue famotidine 40 mg daily Hypertension, believed to be secondary to hospital setting and initial confusion and hallucinations. Resolved with blood pressure on discharge 123/56. Hospital course: Patient is a pleasant 83-year-old female with a past medical history of hypertension, hyperlipidemia, CKD stage IIIa, GERD, and dementia. She presented to the emergency department on 01/19/2024 secondary to worsening confusion and hallucinations. Upon arrival to our facility, patient underwent evaluation in the emergency department. Vital signs upon arrival show blood pressure 165/71, heart rate 71, respiratory rate 20, temp 98.0 F, and SpO2 of 95% on room air. CT brain without contrast was completed negative for acute intracranial abnormality. Labs completed and reviewed. CBC was unremarkable. BMP showing renal function stable with known stage IIIa CKD with BUN of 22, creatinine of 1.14, GFR 44. Glucose was 106. Liver profile showing elevated total bili of 1.4 otherwise normal findings. Urinalysis negative for infection. Influenza A, influenza B, RSV, and COVID PCR were negative. Patient was admitted under our services with consultation to psychiatry. Psychiatry evaluated reporting hallucinations likely secondary to dementia and recommending continue with donezepil 5 mg nightly. Patient was also evaluated by PT/OT recommending [facility] facility for placement. Patient discharged to [facility]. Physical exam: Vital signs reviewed and stable. General: Nontoxic, no distress and appears stated age. Derm: Skin warm and dry, normal coloration for ethnicity. Head: Atraumatic, normocephalic and symmetric. Eyes: EOM's intact, no lid lag, and anicteric sclera Mouth: no lip lesions, mucus membranes moist Cardiovascular: regular rate and rhythm with normal S1S2, no murmur, positive posterior tibial pulses bilaterally, and cap refill < 2 seconds. Lungs: Respirations even, regular, and unlabored on room air. Lungs CTA bilaterally, no rhonchi, no rales, no wheezing, and no accessory muscle usage. Abdominal: soft, nontender to palpation, no guarding, no appreciable organomegaly Ext: ROM intact. No gross muscle atrophy, no edema, no contractures Neuro: Speech clear, face symmetrical and CN II-XII grossly intact with no noted focal neuro deficits Psych: Alert and oriented to person, place, time, and situation. Appropriate and pleasant affect. A total of 33 minutes of time were spent preparing this complex discharge summary. Pt was discharged on 01/28/2024 at 4:05 PM. Patient was seen independently by Nurse Practitioner. This document was prepared using [employer] dictation software. Please allow for errors in automation mechanic while rare they do occur. Estiven Choi NP rendered care for this patient independently, reviewed the findings and plan as documented in the note above. I did not physically speak with or examine the patient on this date. Patient Condition at Discharge: Stable Plan - Discharge Summary New Discharge Prescriptions: Continue Atorvastatin [Lipitor] 10 mg PO DAILY Famotidine [Pepcid] 40 mg PO DAILY Donepezil [Aricept] 5 mg PO HS Discharge Medication List Atorvastatin [Lipitor] 10 mg PO DAILY 07/19/16 [History] Donepezil [Aricept] 5 mg PO HS 01/19/24 [History] Famotidine [Pepcid] 40 mg PO DAILY 01/19/24 [History] Follow up Appointment(s)/Referral(s): Solitario Duke MD [Primary Care Provider] - 1-2 days Activity/Diet/Wound Care/Special Instructions: Activity: As tolerated. Take breaks as needed. Diet: Heart healthy and carb consistent diet. Avoid salts, or foods with hidden salts such as canned or boxed foods and frozen dinners. Extra salt makes your heart work harder and traps the fluid in your body for longer. Special Instructions: Take all of your medications as directed and remember to keep all of your doctor's appointments and follow-up as needed. Thank you for allowing us to participate in your care, it was truly a pleasure having you for our patient!!! Discharge Disposition: TRANSFER TO SNF/ECF
== END 2024-01-28 18:34 ==
LOC: EC 12:16 → INTOOBSV 19:01 → 5NMEDONC 19:01
PROVIDERS: ADMIT Internal Medicine; ATTEND Internal Medicine
DX: R41.0 Disorientation, unspecified
CPT/HCPCS: 36415; 70450; 80048; 80053; 81003; 83735; 85025; 85027; 87636; 96372; 99285